=== PATIENT | male | born 1995 | race Caucasian/White ===

== ENCOUNTER → 2024-12-07 | Outpatient (CLI) | payer OTHER, SELFPAY ==
[2024-12-07 11:42] LABS: Hematocrit 43.4 % (40-54); Hemoglobin 15.0 g/dL (13.0-16.5); Immature Granulocytes Count 0.030 X10^3/uL (0.0-0.0); Mean Corp Hgb Conc 34.6 g/dL (32-36); Mean Corpuscular Volume 91.4 fL (80-94); Mean Platelet Vol. 10.7 fl (6.2-12.0); NRBC Flagged by Analyzer 0 % (0-5); Platelet Count 228 K/mm3 (150-450); RBC Distribution Width CV 12.2 % (11.6-14.6); RBC Distribution Width SD 40.9 fl (35.1-43.9); Red Blood Count 4.75 M/mm3 (4.6-6.2); White Blood Count 7.6 K/mm3 (4.4-11.0)
[2024-12-07 11:43] LABS: Color, Urine Yellow (Yellow); Glucose, Dipstick Normal (Normal); Ketone-Dipstick Negative (Negative); Leukocyte Esterase-Dipstick Negative /ul (Negative); Nitrite-Dipstick Negative (Negative); Occult Blood-Urine Negative /ul (Negative); Protein-Dipstick 15 mg/dl (Negative); Specific Gravity, Urine 1.020 (1.002-1.030); Urine Bilirubin Dipstick Negative (Negative)
[2024-12-07 12:32] LABS: FOLATES,SERUM (FOLIC ACID) 16.10 ng/mL (4.60-34.80)
[2024-12-07 12:38] LABS: AST(SGOT) 36 U/L (<=37); Alanine Aminotransfer ALT/SGPT 81 U/L (<=46); Albumin, Serum 4.3 g/dL (3.5-5.0); Alkaline Phosphatase 68 U/L (40-129); Anion Gap 13 (5-15); BUN 10 mg/dL (4-19); BUN/Creat Ratio 11.0 RATIO (10-20); Calcium,Total 9.3 mg/dL (7.6-11.0); Carbon Dioxide 23.1 mmol/L (21.0-32.0); Chloride 104 mmol/L (98-108); Cholesterol 196 mg/dL (<=200); Globulin 2.5 g/dL (2.2-4.2); Glucose 155 mg/dL (70-99); Low Density Lipoprotein Calc. 119 mg/dL; Potassium 4.1 mmol/L (3.3-5.1); T3 Total - Triiodothyronine 1.40 ng/mL (0.80-2.00); T4 Total, Thyroxin 7.3 ug/dL (4.5-12.1); Triglycerides 193 mg/dL; Very Low Density Lipoprotein 39 mg/dL (5-40); Vitamin B12 604 pg/mL (180-914); Vitamin D,25 Hydroxy 14.0 ng/mL (30-100); cholesterol:hdl ratio screen 5.09
[2024-12-07 13:09] LABS: Iron 136 ug/dL (65-175)
== END | disposition home or self-care (01) ==
LOC: LAB 10:52
PROVIDERS: PCP Nurse Practitioner Family
DX: F32.1 Major depressive disorder, single episode, moderate (principal)
CPT/HCPCS: 36415; 80053; 80061; 81002; 82306; 82607; 82746; 83036; 83540; 84403; 84436; 84439; 84443; 84480; 85025; 87086

== ENCOUNTER → 2024-12-10 | Outpatient (CLI) | payer OTHER, SELFPAY ==
--- NOTE | 2024-12-10 07:31 | EKG12_ITS ---
Test Reason : HIGH RISK MED Blood Pressure : */* mmHG Vent. Rate : 89 BPM Atrial Rate : 89 BPM P-R Int : 144 ms QRS Dur : 90 ms QT Int : 362 ms P-R-T Axes : -13 33 23 degrees QTcB Int : 440 ms Normal sinus rhythm Normal ECG Confirmed by TANIA MARQUEZ, IVANIA ([id number]), editorial cartoonist [employer] ([id number]) on 12/10/2024 1:18:06 PM Referred By: MIKE CAPELLAN Confirmed By: IVANIA MARIN MD
--- NOTE | 2024-12-10 07:31 | EKG12_ITS ---
Test Reason : HIGH RISK MED Blood Pressure : */* mmHG Vent. Rate : 89 BPM Atrial Rate : 89 BPM P-R Int : 144 ms QRS Dur : 90 ms QT Int : 362 ms P-R-T Axes : -13 33 23 degrees QTcB Int : 440 ms Normal sinus rhythm Normal ECG Confirmed by TANIA MARQUEZ, IVANIA ([id number]), publishing editor [employer] ([id number]) on 12/10/2024 1:18:06 PM Referred By: MIKE CAPELLAN Confirmed By: IVANIA MARIN MD
--- OUTSIDE RECORDS SUMMARY | 2024-12-10 07:32 | XMS RPT_ITS | CCD ---
Author Organization [facility] Care Team Providers Care Professor Of Management Name Role Phone Unavailable Primary Care Provider Harvey PAYNE BROOM MAN - PAPER BAG MACHINE OPERATOR, NOEL Fontenot Primary Care Phys ician KERRY CONTRERAS - NOEL HAMMER Attending U navailjt PAYNE APRN - PAPER BAG MACHINE OPERATOR, NOEL Fontenot Primary Care U navailable Pittak, Majano Referring Unavailable Pittak, Majano Attending Unavailable Kerry CHRONOGRAPH OPERATOR, Noel Osorio Primary Care Unav ailable Kerry CHRONOGRAPH OPERATOR, Noel Osorio Primary Care Unav ailable Pittak, Majano Referring Unavailable Pittak, Majano Attending Unavailable Allergies Allergy Classification Reported Allergen(s) Allergy Type Date of Onset Reaction(s) Facility (1 source) environmental [Other] Propensity to adverse reactions 0 [facility] Work Phone: (1 source) OTHER; Translations: [OTHER] Propensity to adverse reactions (disorder) 0 [facility] Repository Medications Current Medications Medication Drug Class(es) Dates Sig (Normalized) Sig (Original) amoxicillin 875 mg / clavulanate 125 mg oral tablet (1 source) Penicillin-class Antibacterial Start: 05-29-2023 End: 06-05-2023 take 1 tablet by mouth twice daily amoxicillin-clav ulanate potassium (AUGMENTIN) 875-125 mg per tablet Indications: Acute otitis media, left Take 1 tablet by mouth two times a day for 7 days. 14 tablet 0 05/29/2023 06/05/2023 Active Comment on above: Take 1 tablet by yadira th two times a day for 7 days. Completed/Discontinued Medications Medication Drug Class(es) Dates Sig (Normalized) Sig (Original) adapalene 0.001 mg/mg / benzoyl peroxide 0.025 mg/mg topical gel (2 sources) Retinoid Start: 05-05-2015 Adapalene-Benzoyl Peroxide (EPIDUO) 0.1-2.5 % gel Indications: Acne vulgaris Apply 1 application to affected area once daily. 1 Pump 2 05/05/2015 Active Comment on above: Apply 1 application to affected area once daily. fluticasone propionate 0.05 mg/actuat metered dose nasal spray (2 sources) Corticosteroid Start: 04-11-2022 take 2 spray(s) by mouth once daily fluticasone (FLONASE) 50 mcg/actuation nasal spray Use 2 Sprays in each nostril once daily. Rinse mouth after use. 1 Each 0 04/11/2022 Active Comment on above: Use 2 Sprays in each nostril once daily. Rinse mouth after use. meclizine hydrochloride 12.5 mg oral tablet (2 sources) Antiemetic Start: 04-11-2022 take 12.5-25 mg by mouth every six hours as needed meclizine (ANTIVERT) 12.5 mg tab Take 1-2 tablets by mouth every 6 hours as needed (dizziness). 12 tablet 0 04/11/2022 Active Comment on above: Take 1-2 tablets by mouth every 6 hours as needed (dizziness). Problems Problem Classification Problem Date Documented Da te Episodic/Chronic Conditions associated with dizziness or vertigo (1 source) Vertigo; Translations: [Dizziness and giddiness] Episodic Mood disorders (1 source) Major depressive disorder, single episode, moderate; Translations: [Major depressive disorder, single episode, moderate] Onset: 12-07-2024 Chronic Other hereditary and degenerative nervous system conditions (2 sources) Essential tremor; Translations: [Essential tremor] Onset: 03-17-2010 03-17-2010 Chronic Otitis media and related conditions (2 sources) Dysfunction of bilateral eustachian tubes; Translations: [Other specified disorders of Eustachian tube, bilateral] Episodic Residual codes; unclassified (1 source) Increased body mass index 12-19-2023 Episodic Unclassified (1 source) Non-smoker 12-19-2023 Unclassified (3 sources) Patient encounter status 12-19-2023 Results Test Name Value Interpretation Reference Range Facility CBC W/Diff, Automatedon 08-0 Absolute Lymph 2.51 X10 3/uL Normal 0.83-4.51 [facility] Comment on above: Performed By: #### L 400, L501.9985, L509.3001, L500.4100, L501.9520, L503.0106, L500.4050, L100.0100, L501.9310, L506.0200, L501.9187, L506.0400, L503.6150, L506.1001 #### [facility] [address] [place], [address] Absolute Neut 4.4 X10 3/uL Normal 2.0-7.7 [facility] Comment on above: Performed By: #### L 400, L501.9985, L509.3001, L500.4100, L501.9520, L503.0106, L500.4050, L100.0100, L501.9310, L506.0200, L501.9187, L506.0400, L503.6150, L506.1001 #### [facility] [address] [place], [address] Basophils/100 WBC (Bld) 0.5 % Normal 0-1 [facility] Comment on above: Performed By: #### L , L501.9985, L509.3001, L500.4100, L501.9520, L503.0106, L500.4050, L100.0100, L501.9310, L506.0200, L501.9187, L506.0400, L503.6150, L506.1001 #### [facility] [address] [place], [address] Eosinophils/100 WBC (Bld) 1.8 % Normal 0-5 [facility] Comment on above: Performed By: #### L 400, L501.9985, L509.3001, L500.4100, L501.9520, L503.0106, L500.4050, L100.0100, L501.9310, L506.0200, L501.9187, L506.0400, L503.6150, L506.1001 #### [facility] [address] [place], [place], [id number] (421) Erythrocyte distribution width (RBC) [Ratio] 12.2 % Normal 11.6-14.6 [facility] Comment on above: Performed By: #### L 400, L501.9985, L509.3001, L500.4100, L501.9520, L503.0106, L500.4050, L100.0100, L501.9310, L506.0200, L501.9187, L506.0400, L503.6150, L506.1001 #### [facility] [address] [place], [place], [phone] (071) Hematocrit (Bld) [Volume fraction] 43.4 % Normal 40-54 [facility] Comment on above: Performed By: #### L 400, L501.9985, L509.3001, L500.4100, L501.9520, L503.0106, L500.4050, L100.0100, L501.9310, L506.0200, L501.9187, L506.0400, L503.6150, L506.1001 #### [facility] [address] [place], [address] Hemoglobin (Bld) [Mass/Vol] 15.0 g/dL Normal 13.0-16.5 [facility] Comment on above: Performed By: #### L 400, L501.9985, L509.3001, L500.4100, L501.9520, L503.0106, L500.4050, L100.0100, L501.9310, L506.0200, L501.9187, L506.0400, L503.6150, L506.1001 #### [facility] [address] [place], [address] IG% 0.400 Normal 0.0-0.9 [facility] Comment on above: Result Comment: IG% - Immature Granulocytes (promyelocytes, myelocytes and metamyelocytes) > 1% indicates that a LEFT SHIFT is Present. Performed By: #### L 400.2010, L501.9985, L509.3001, L500.4100, L501.9520, L503.0106, L500.4050, L100.0100, L501.9310, L506.0200, L501.9187, L506.0400, L503.6150, L506.1001 #### [facility] [address] [place], [address] (400 Lymphocytes/100 WBC (Bld) 32.9 % Normal 19-41 [facility] Comment on above: Performed By: #### L 400, L501.9985, L509.3001, L500.4100, L501.9520, L503.0106, L500.4050, L100.0100, L501.9310, L506.0200, L501.9187, L506.0400, L503.6150, L506.1001 #### [facility] [address] [place], [address] (491) MCH (RBC) [Entitic mass] 31.6 pg Normal 27.0-32.0 [facility] Comment on above: Performed By: #### L 400, L501.9985, L509.3001, L500.4100, L501.9520, L503.0106, L500.4050, L100.0100, L501.9310, L506.0200, L501.9187, L506.0400, L503.6150, L506.1001 #### [facility] [address] [place], [address] MCHC (RBC) [Mass/Vol] 34.6 g/dL Normal 32-36 [facility] Comment on above: Performed By: #### L 400, L501.9985, L509.3001, L500.4100, L501.9520, L503.0106, L500.4050, L100.0100, L501.9310, L506.0200, L501.9187, L506.0400, L503.6150, L506.1001 #### [facility] [address] [place], [address] MCV (RBC) [Entitic vol] 91.4 fL Normal 80-94 [facility] Comment on above: Performed By: #### L 400, L501.9985, L509.3001, L500.4100, L501.9520, L503.0106, L500.4050, L100.0100, L501.9310, L506.0200, L501.9187, L506.0400, L503.6150, L506.1001 #### [facility] [address] [place], [address] Monocytes/100 WBC (Bld) 6.9 % Normal 0-10 [facility] Comment on above: Performed By: #### L 400, L501.9985, L509.3001, L500.4100, L501.9520, L503.0106, L500.4050, L100.0100, L501.9310, L506.0200, L501.9187, L506.0400, L503.6150, L506.1001 #### [facility] [address] [place], [address] Neutrophils/100 WBC (Bld) 57.5 % Normal 47-70 [facility] Comment on above: Performed By: #### L 400, L501.9985, L509.3001, L500.4100, L501.9520, L503.0106, L500.4050, L100.0100, L501.9310, L506.0200, L501.9187, L506.0400, L503.6150, L506.1001 #### [facility] [address] [place], [address] Nucleated RBC (Bld) [#/Vol] 0 10*3/uL Normal 0-5 [facility] Comment on above: Performed By: #### L 400.2010, L501.9985, L509.3001, L500.4100, L501.9520, L503.0106, L500.4050, L100.0100, L501.9310, L506.0200, L501.9187, L506.0400, L503.6150, L506.1001 #### [facility] [address] [place], [address] Platelet mean volume (Bld) [Entitic vol] 10.7 fL Normal 6.2-12.0 [facility] Comment on above: Performed By: #### L 400.2010, L501.9985, L509.3001, L500.4100, L501.9520, L503.0106, L500.4050, L100.0100, L501.9310, L506.0200, L501.9187, L506.0400, L503.6150, L506.1001 #### [facility] [address] [place], [address] Platelets (Bld) [#/Vol] 228 10*3/uL Normal 150-450 [facility] Comment on above: Performed By: #### L 400, L501.9985, L509.3001, L500.4100, L501.9520, L503.0106, L500.4050, L100.0100, L501.9310, L506.0200, L501.9187, L506.0400, L503.6150, L506.1001 #### [facility] [address] [place], [address] RBC (Bld) [#/Vol] 4.75 10*6/uL Normal 4.6-6.2 [facility] Comment on above: Performed By: #### L , L501.9985, L509.3001, L500.4100, L501.9520, L503.0106, L500.4050, L100.0100, L501.9310, L506.0200, L501.9187, L506.0400, L503.6150, L506.1001 #### [facility] [address] [place], [address] RDW SD 40.9 fl Normal 35.1-43.9 [facility] Comment on above: Performed By: #### L , L501.9985, L509.3001, L500.4100, L501.9520, L503.0106, L500.4050, L100.0100, L501.9310, L506.0200, L501.9187, L506.0400, L503.6150, L506.1001 #### [facility] [address] [place], [address] WBC (Bld) [#/Vol] 7.6 10*3/uL Normal 4.4-11.0 [facility] Comment on above: Performed By: #### L , L501.9985, L509.3001, L500.4100, L501.9520, L503.0106, L500.4050, L100.0100, L501.9310, L506.0200, L501.9187, L506.0400, L503.6150, L506.1001 #### [facility] [address] [place], [address] Comprehensive Metabolic Prof neon 12-07-2024 Albumin [Mass/Vol] 4.3 g/dL Normal 3.5-5.0 [facility] Comment on above: Performed By: #### L , L501.9985, L509.3001, L500.4100, L501.9520, L503.0106, L500.4050, L100.0100, L501.9310, L506.0200, L501.9187, L506.0400, L503.6150, L506.1001 #### [facility] [address] [place], [place], [id number] (368) Albumin/Globulin [Mass ratio] 1.7 {ratio} Normal 0.9-2.4 [facility] Comment on above: Performed By: #### L 400, L501.9985, L509.3001, L500.4100, L501.9520, L503.0106, L500.4050, L100.0100, L501.9310, L506.0200, L501.9187, L506.0400, L503.6150, L506.1001 #### [facility] [address] [place], [place], [id number] ALK PHOS 68 U/L Normal 40-129 [facility] Comment on above: Performed By: #### L , L501.9985, L509.3001, L500.4100, L501.9520, L503.0106, L500.4050, L100.0100, L501.9310, L506.0200, L501.9187, L506.0400, L503.6150, L506.1001 #### [facility] [address] [place], [place], [id number] (954) ALT [Catalytic activity/Vol] 81 U/L High <=46 [facility] Comment on above: Performed By: #### L 400, L501.9985, L509.3001, L500.4100, L501.9520, L503.0106, L500.4050, L100.0100, L501.9310, L506.0200, L501.9187, L506.0400, L503.6150, L506.1001 #### [facility] [address] [place], [place], [id number] AST [Catalytic activity/Vol] 36 U/L Normal <=37 [facility] Comment on above: Performed By: #### L 400, L501.9985, L509.3001, L500.4100, L501.9520, L503.0106, L500.4050, L100.0100, L501.9310, L506.0200, L501.9187, L506.0400, L503.6150, L506.1001 #### [facility] [address] [place], [place], [id number] Bilirubin [Mass/Vol] 0.43 mg/dL Normal 0.00-1.30 [facility] Comment on above: Performed By: #### L , L501.9985, L509.3001, L500.4100, L501.9520, L503.0106, L500.4050, L100.0100, L501.9310, L506.0200, L501.9187, L506.0400, L503.6150, L506.1001 #### [facility] [address] [place], [place], [id number] BUN/CRE 11.0 RATIO Normal 10-20 [facility] Comment on above: Performed By: #### L 400, L501.9985, L509.3001, L500.4100, L501.9520, L503.0106, L500.4050, L100.0100, L501.9310, L506.0200, L501.9187, L506.0400, L503.6150, L506.1001 #### [facility] [address] [place], [place], [id number] Calcium [Mass/Vol] 9.3 mg/dL Normal 7.6-11.0 [facility] Comment on above: Performed By: #### L 400.2010, L501.9985, L509.3001, L500.4100, L501.9520, L503.0106, L500.4050, L100.0100, L501.9310, L506.0200, L501.9187, L506.0400, L503.6150, L506.1001 #### [facility] [address] [place], [address] Chloride [Moles/Vol] 104 mmol/L Normal 98-108 [facility] Comment on above: Performed By: #### L 400, L501.9985, L509.3001, L500.4100, L501.9520, L503.0106, L500.4050, L100.0100, L501.9310, L506.0200, L501.9187, L506.0400, L503.6150, L506.1001 #### [facility] [address] [place], [place], [id number] (831) CO2 [Moles/Vol] 23.1 mmol/L Normal 21.0-32.0 [facility] Comment on above: Performed By: #### L , L501.9985, L509.3001, L500.4100, L501.9520, L503.0106, L500.4050, L100.0100, L501.9310, L506.0200, L501.9187, L506.0400, L503.6150, L506.1001 #### [facility] [address] [place], [place], [id number] (745) Creatinine [Mass/Vol] 0.95 mg/dL Normal 0.70-1.20 [facility] Comment on above: Performed By: #### L 400, L501.9985, L509.3001, L500.4100, L501.9520, L503.0106, L500.4050, L100.0100, L501.9310, L506.0200, L501.9187, L506.0400, L503.6150, L506.1001 #### [facility] [address] [facility] [place], [place], [id number] GAP 13 Normal 5-15 [facility] Comment on above: Performed By: #### L 400, L501.9985, L509.3001, L500.4100, L501.9520, L503.0106, L500.4050, L100.0100, L501.9310, L506.0200, L501.9187, L506.0400, L503.6150, L506.1001 #### [facility] [address] [place], [address] GFR/1.73 sq M.predicted among non-blacks MDRD (S/P/Bld) [Vol rate/Area] 113 mL/min/{1.73_m2} Normal >60 [facility] Comment on above: Result Comment: mL/m in/1.73m2 CKD-EPI Creatinine Equation (2020) Performed By: #### L , L501.9985, L509.3001, L500.4100, L501.9520, L503.0106, L500.4050, L100.0100, L501.9310, L506.0200, L501.9187, L506.0400, L503.6150, L506.1001 #### [facility] [address] [place], [address] Globulin (S) [Mass/Vol] 2.5 g/dL Normal 2.2-4.2 [facility] Comment on above: Performed By: #### L 400, L501.9985, L509.3001, L500.4100, L501.9520, L503.0106, L500.4050, L100.0100, L501.9310, L506.0200, L501.9187, L506.0400, L503.6150, L506.1001 #### [facility] [address] [place], [address] Glucose [Mass/Vol] 155 mg/dL High 70-99 [facility] Comment on above: Performed By: #### L 400, L501.9985, L509.3001, L500.4100, L501.9520, L503.0106, L500.4050, L100.0100, L501.9310, L506.0200, L501.9187, L506.0400, L503.6150, L506.1001 #### [facility] [address] [place], [address] Potassium [Moles/Vol] 4.1 mmol/L Normal 3.3-5.1 [facility] Comment on above: Performed By: #### L 400, L501.9985, L509.3001, L500.4100, L501.9520, L503.0106, L500.4050, L100.0100, L501.9310, L506.0200, L501.9187, L506.0400, L503.6150, L506.1001 #### [facility] [address] [place], [address] Sodium [Moles/Vol] 140 mmol/L Normal 133-145 [facility] Comment on above: Performed By: #### L 400, L501.9985, L509.3001, L500.4100, L501.9520, L503.0106, L500.4050, L100.0100, L501.9310, L506.0200, L501.9187, L506.0400, L503.6150, L506.1001 #### [facility] [address] [place], [address] T PROT 6.9 g/dL Normal 5.9-8.4 [facility] Comment on above: Performed By: #### L 400.2010, L501.9985, L509.3001, L500.4100, L501.9520, L503.0106, L500.4050, L100.0100, L501.9310, L506.0200, L501.9187, L506.0400, L503.6150, L506.1001 #### [facility] [address] [place], [address] Urea nitrogen [Mass/Vol] 10 mg/dL Normal 4-19 [facility] Comment on above: Performed By: #### L 400.2010, L501.9985, L509.3001, L500.4100, L501.9520, L503.0106, L500.4050, L100.0100, L501.9310, L506.0200, L501.9187, L506.0400, L503.6150, L506.1001 #### [facility] [address] [place], [address] Folates,Serum (Folic Acid)on 12-07-2024 FOLATES,SERUM 16.10 ng/mL Normal 4.60-34.80 [facility] Comment on above: Order Comment: N Performed By: #### L 400.2010, L501.9985, L509.3001, L500.4100, L501.9520, L503.0106, L500.4050, L100.0100, L501.9310, L506.0200, L501.9187, L506.0400, L503.6150, L506.1001 #### [facility] [address] [place], [address] Hemoglobin A1con 12-07-2024 HbA1c (Bld) [Mass fraction] 6.6 % High <=5.6 [facility] Comment on above: Result Comment: Norm al < 5.7 % Prediabetic 5.7 - 6.4 % Diabetic >or= 6.5 % Please note range changes. Performed By: #### L 400.2010, L501.9985, L509.3001, L500.4100, L501.9520, L503.0106, L500.4050, L100.0100, L501.9310, L506.0200, L501.9187, L506.0400, L503.6150, L506.1001 #### [facility] [address] [place], [address] Ironon 12-07-2024 Iron [Mass/Vol] 136 ug/dL Normal 65-175 [facility] Comment on above: Performed By: #### L 400.2010, L501.9985, L509.3001, L500.4100, L501.9520, L503.0106, L500.4050, L100.0100, L501.9310, L506.0200, L501.9187, L506.0400, L503.6150, L506.1001 #### [facility] [address] [place], [address] L501.9187on 12-07-2024 T3 Total 1.40 ng/mL Normal 0.80-2.00 [facility] Comment on above: Performed By: #### L 400.2010, L501.9985, L509.3001, L500.4100, L501.9520, L503.0106, L500.4050, L100.0100, L501.9310, L506.0200, L501.9187, L506.0400, L503.6150, L506.1001 #### [facility] [address] [place], [address] L509.3001on 12-07-2024 Testosterone [Mass/Vol] 307.00 ng/dL Normal 300-1080 [facility] Comment on above: Performed By: #### L 400, L501.9985, L509.3001, L500.4100, L501.9520, L503.0106, L500.4050, L100.0100, L501.9310, L506.0200, L501.9187, L506.0400, L503.6150, L506.1001 #### [facility] [address] [place], [place], [id number] Lipid Profileon 12-07-2024 CHOL:HDL 5.09 Normal [facility] Comment on above: Performed By: #### L 400.2010, L501.9985, L509.3001, L500.4100, L501.9520, L503.0106, L500.4050, L100.0100, L501.9310, L506.0200, L501.9187, L506.0400, L503.6150, L506.1001 #### [facility] [address] [place], [address] Cholesterol [Mass/Vol] 196 mg/dL Normal <=200 [facility] Comment on above: Result Comment: Chol esterol level, Desirable <200 mg/dL Borderline high cholesterol 200-239 mg/dL High cholesterol >=240 mg/dL Recommendations of the NCEP Adult Treatment Panel for the following risk-cutoff thresholds for the [place] population. Performed By: #### L 400, L501.9985, L509.3001, L500.4100, L501.9520, L503.0106, L500.4050, L100.0100, L501.9310, L506.0200, L501.9187, L506.0400, L503.6150, L506.1001 #### [facility] [address] [place], [place], [id number] Cholesterol in HDL [Mass/Vol] 39 mg/dL Low [facility] Comment on above: Result Comment: Cyndi onal Cholesterol Education Program (NCEP) guidelines: <40 mg/dL: Low HDL-cholesterol (major risk factor for CHD) >= 60 mg/dL: High HDL-cholesterol (negative risk factor for CHD) HDL-cholesterol is affected by a number of factors, e.g. smoking, exercise, hormones, sex and age. Performed By: #### L 400, L501.9985, L509.3001, L500.4100, L501.9520, L503.0106, L500.4050, L100.0100, L501.9310, L506.0200, L501.9187, L506.0400, L503.6150, L506.1001 #### [facility] [address] [place], [address] Cholesterol in LDL [Mass/Vol] 119 mg/dL Normal [facility] Comment on above: Result Comment: Bord ejutvi=245-566 mg/dL Higher Lodg=428 mg/dL or greater Friedwald Equation for LDL-C Performed By: #### L 400, L501.9985, L509.3001, L500.4100, L501.9520, L503.0106, L500.4050, L100.0100, L501.9310, L506.0200, L501.9187, L506.0400, L503.6150, L506.1001 #### [facility] [address] [place], [address] Cholesterol in VLDL [Mass/Vol] 39 mg/dL Normal 5-40 [facility] Comment on above: Performed By: #### L , L501.9985, L509.3001, L500.4100, L501.9520, L503.0106, L500.4050, L100.0100, L501.9310, L506.0200, L501.9187, L506.0400, L503.6150, L506.1001 #### [facility] [address] [place], [address] Triglyceride [Mass/Vol] 193 mg/dL Normal [facility] Comment on above: Result Comment: The drugs N-Acetylcysteine and Metamizole may falsely depress this assay. Normal range: <150 mg/dL Borderline High: 150-199 mg/dL High: 200-499 mg/dL Very High: >500 mg/dL Performed By: #### L 400.2010, L501.9985, L509.3001, L500.4100, L501.9520, L503.0106, L500.4050, L100.0100, L501.9310, L506.0200, L501.9187, L506.0400, L503.6150, L506.1001 #### [facility] [address] [place], [place], [phone] ([phone]) T4 Free Directon 12-07-2024 T4 FREE DIRECT 1.30 ng/dL Normal 0.76-1.46 [facility] Comment on above: Performed By: #### L 400, L501.9985, L509.3001, L500.4100, L501.9520, L503.0106, L500.4050, L100.0100, L501.9310, L506.0200, L501.9187, L506.0400, L503.6150, L506.1001 #### [facility] [address] [facility]. [place], [place], [phone] T4 Total, Thyroxinon 025 T4 [Mass/Vol] 7.3 ug/dL Normal 4.5-12.1 [facility] Comment on above: Performed By: #### L 400, L501.9985, L509.3001, L500.4100, L501.9520, L503.0106, L500.4050, L100.0100, L501.9310, L506.0200, L501.9187, L506.0400, L503.6150, L506.1001 #### [facility] [address] [facility]. [place], [place], [phone]) Thyroid Stim Hormone (TSH)on 12-07-2024 TSH 3.800 uIU/mL Normal 0.300-4.200 [facility] Comment on above: Performed By: #### L 400.2010, L501.9985, L509.3001, L500.4100, L501.9520, L503.0106, L500.4050, L100.0100, L501.9310, L506.0200, L501.9187, L506.0400, L503.6150, L506.1001 #### [facility] [address] [place], [place], [phone] Urinalysis, Routine (Dipstic k)on 12-07-2024 BILIRUBIN URINE Negative Normal Negative [facility] Comment on above: Order Comment: Urine , Random Performed By: #### L 400, L501.9985, L509.3001, L500.4100, L501.9520, L503.0106, L500.4050, L100.0100, L501.9310, L506.0200, L501.9187, L506.0400, L503.6150, L506.1001 #### [facility] [address] [place], [place], [phone] Clarity (U) Clear Normal Clear [facility] Comment on above: Order Comment: Urine , Random Performed By: #### L , L501.9985, L509.3001, L500.4100, L501.9520, L503.0106, L500.4050, L100.0100, L501.9310, L506.0200, L501.9187, L506.0400, L503.6150, L506.1001 #### [facility] [address] [place], [place], [phone] Color (U) Yellow Normal Yellow [facility] Comment on above: Order Comment: Urine , Random Performed By: #### L 400, L501.9985, L509.3001, L500.4100, L501.9520, L503.0106, L500.4050, L100.0100, L501.9310, L506.0200, L501.9187, L506.0400, L503.6150, L506.1001 #### [facility] [address] [place], [place], [phone]) GLUCOSE, UR Normal Normal Normal [facility] Comment on above: Order Comment: Urine , Random Performed By: #### L 400.2010, L501.9985, L509.3001, L500.4100, L501.9520, L503.0106, L500.4050, L100.0100, L501.9310, L506.0200, L501.9187, L506.0400, L503.6150, L506.1001 #### [facility] [address] [place], [place], [id number] ([phone] KETONE UR Negative Normal Negative [facility] Comment on above: Order Comment: Urine , Random Performed By: #### L 400, L501.9985, L509.3001, L500.4100, L501.9520, L503.0106, L500.4050, L100.0100, L501.9310, L506.0200, L501.9187, L506.0400, L503.6150, L506.1001 #### [facility] [address] [place], [place], [id number] ([phone]) LEUK ESTERASE Negative Normal Negative [facility] Comment on above: Order Comment: Urine , Random Performed By: #### L 400, L501.9985, L509.3001, L500.4100, L501.9520, L503.0106, L500.4050, L100.0100, L501.9310, L506.0200, L501.9187, L506.0400, L503.6150, L506.1001 #### [facility] [address] [place], [place], [id number] ([phone]) Nitrite Ql (U) Negative Normal Negative [facility] Comment on above: Order Comment: Urine , Random Performed By: #### L 400, L501.9985, L509.3001, L500.4100, L501.9520, L503.0106, L500.4050, L100.0100, L501.9310, L506.0200, L501.9187, L506.0400, L503.6150, L506.1001 #### [facility] [address] [place], [place], [id number] OCCULT BLOOD-UR Negative Normal Negative [facility] Comment on above: Order Comment: Urine , Random Performed By: #### L 400, L501.9985, L509.3001, L500.4100, L501.9520, L503.0106, L500.4050, L100.0100, L501.9310, L506.0200, L501.9187, L506.0400, L503.6150, L506.1001 #### [facility] [address] [place], [place], [id number] pH UR 6.0 Normal 5.0 - 8.0 [facility] Comment on above: Order Comment: Urine , Random Performed By: #### L 400, L501.9985, L509.3001, L500.4100, L501.9520, L503.0106, L500.4050, L100.0100, L501.9310, L506.0200, L501.9187, L506.0400, L503.6150, L506.1001 #### [facility] [address] [place], [place], [id number] (612) PROT DIPSTX 15 mg/dl Abnormal Negative [facility] Comment on above: Order Comment: Urine , Random Performed By: #### L 400, L501.9985, L509.3001, L500.4100, L501.9520, L503.0106, L500.4050, L100.0100, L501.9310, L506.0200, L501.9187, L506.0400, L503.6150, L506.1001 #### [facility] [address] [place], [place], [id number] (045) SP.GR. DIPSTX 1.020 Normal 1.002-1.030 [facility] Comment on above: Order Comment: Urine , Random Performed By: #### L 400.2010, L501.9985, L509.3001, L500.4100, L501.9520, L503.0106, L500.4050, L100.0100, L501.9310, L506.0200, L501.9187, L506.0400, L503.6150, L506.1001 #### [facility] [address] [place], [place], [id number] (641) UROBILI Normal Normal Normal [facility] Comment on above: Order Comment: Urine , Random Performed By: #### L 400, L501.9985, L509.3001, L500.4100, L501.9520, L503.0106, L500.4050, L100.0100, L501.9310, L506.0200, L501.9187, L506.0400, L503.6150, L506.1001 #### [facility] [address] [place], [place], [id number] (452) Vitamin B12on 12-07-2024 Cobalamin (Vitamin B12) [Mass/Vol] 604 pg/mL Normal 180-914 [facility] Comment on above: Performed By: #### L 400, L501.9985, L509.3001, L500.4100, L501.9520, L503.0106, L500.4050, L100.0100, L501.9310, L506.0200, L501.9187, L506.0400, L503.6150, L506.1001 #### [facility] [address] [place], [address] Vitamin D,25 Hydroxyon 12-07 Vitamin D 25-OH 14.0 ng/mL Low 30-100 [facility] Comment on above: Result Comment: Leandra min D Status Deficiency: <20 ng/mL (50nmol/L) Insufficiency: 20-30 ng/mL (50-75 nmol/L) Sufficiency: 30-100 ng/mL (75-250 nmol/L) Toxicity: >100 ng/mL (>250 nmol/L) Performed By: #### L 400.2011, L501.9985, L509.3001, L500.4100, L501.9520, L503.0106, L500.4050, L100.0100, L501.9310, L506.0200, L501.9187, L506.0400, L503.6150, L506.1001 #### [facility] [address] [place], [place], [id number] .GFRon 12-22-2023 GFR 93 ml/min/1.73sqm Normal [facility] ([place]) Comment on above: Result Comment: GFR Population mean for , Non- Americans Ages 20-29 = 116 mL/min/1.73 sq.m. Ages 30-39 = 107 mL/min/1.73 sq.m. Ages 40-49 = 99 mL/min/1.73 sq.m. Ages 50-59 = 93 mL/min/1.73 sq.m. Ages 60-69 = 85 mL/min/1.73 sq.m. Ages 70+ = 75 mL/min/1.73 sq.m. Chronic Kidney Disease: Less than 60 mL/min/1.73 square meters End Stage Renal Disease: Less than 15 mL/min/1.73 square meters Performed By: #### C MP, GFR, LIPID #### [place] [address] [address] GFR Non- 77 ml/min/1.73sqm Normal [facility] ([place]) Comment on above: Result Comment: GFR Population mean for , Non- Americans Ages 20-29 = 116 mL/min/1.73 sq.m. Ages 30-39 = 107 mL/min/1.73 sq.m. Ages 40-49 = 99 mL/min/1.73 sq.m. Ages 50-59 = 93 mL/min/1.73 sq.m. Ages 60-69 = 85 mL/min/1.73 sq.m. Ages 70+ = 75 mL/min/1.73 sq.m. Chronic Kidney Disease: Less than 60 mL/min/1.73 square meters End Stage Renal Disease: Less than 15 mL/min/1.73 square meters Performed By: #### C MP, GFR, LIPID #### [address] [address] CMPon 12-22-2023 Albumin Level 4.0 G/dL Normal 3.5-5.0 [facility] ([place]) Comment on above: Performed By: #### C MP, GFR, LIPID #### [address] [address] Albumin/Globulin [Mass ratio] 1.3 {ratio} Normal 1.1-2.5 [facility] ([place]) Comment on above: Performed By: #### C MP, GFR, LIPID #### [address] [address] ALP [Catalytic activity/Vol] 88 U/L Normal 40-135 [facility] ([place]) Comment on above: Performed By: #### C MP, GFR, LIPID #### [address] [address] ALT [Catalytic activity/Vol] 72 U/L High 16-63 [facility] ([place]) Comment on above: Performed By: #### C MP, GFR, LIPID #### [address] [address] AST [Catalytic activity/Vol] 23 U/L Normal 10-40 [facility] ([place]) Comment on above: Performed By: #### C MP, GFR, LIPID #### [address] [address] Bili Total 0.4 mg/dL Normal 0.2-1.0 [facility] ([place]) Comment on above: Result Comment: Use of this assay is not recommended for patients undergoing treatment with eltrombopag due to the potential for falsely elevated results. Performed By: #### C MP, GFR, LIPID #### [address] [address] BUN/Creatinine Ratio 10 ratio Normal 7-27 [facility] ([place]) Comment on above: Performed By: #### C MP, GFR, LIPID #### [address] [address] Calcium [Mass/Vol] 9.1 mg/dL Normal 8.4-10.2 [facility] ([place]) Comment on above: Performed By: #### C MP, GFR, LIPID #### [address] [address] Chloride [Moles/Vol] 105 mmol/L Normal 98-107 [facility] ([place]) Comment on above: Performed By: #### C MP, GFR, LIPID #### [address] [address] CO2 [Moles/Vol] 27 mmol/L Normal 22-29 [facility] ([place]) Comment on above: Performed By: #### C MP, GFR, LIPID #### [address] [address] Creatinine [Mass/Vol] 1.15 mg/dL Normal 0.70-1.30 [facility] ([place]) Comment on above: Performed By: #### C MP, GFR, LIPID #### [address] [address] Electrolyte Balance 9.0 mEq/L Normal 4.0-15.0 [facility] ([place]) Comment on above: Performed By: #### C MP, GFR, LIPID #### [address] [address] Globulin 3.1 G/dL Normal [facility] ([place]) Comment on above: Performed By: #### C MP, GFR, LIPID #### [address] [address] Glucose [Mass/Vol] 92 mg/dL Normal 70-105 [facility] ([place]) Comment on above: Performed By: #### C MP, GFR, LIPID #### [address] [place], [place] [address] Potassium [Moles/Vol] 4.5 mmol/L Normal 3.5-5.1 [facility] ([place]) Comment on above: Performed By: #### C MP, GFR, LIPID #### [address] [place], [place] [address] Sodium [Moles/Vol] 141 mmol/L Normal 136-145 [facility] ([place]) Comment on above: Performed By: #### C MP, GFR, LIPID #### [address] [address] Total Protein 7.1 G/dL Normal 6.4-8.2 [facility] ([place]) Comment on above: Performed By: #### C MP, GFR, LIPID #### [address] [address] Urea nitrogen [Mass/Vol] 11 mg/dL Normal 7-18 [facility] ([place]) Comment on above: Performed By: #### C MP, GFR, LIPID #### [address] [address] LABORATORYOrdered By: SYSTEM SYSTEM on 12-22-2023 Albumin BCP dye [Mass/Vol] 4.0 G/dL Normal 3.5 - 5.0 G/dL AO ADM SS Albumin/Globulin [Mass ratio] 1.3 {ratio} Normal 1.1 - 2.5 ratio AO ADM SS ALP [Catalytic activity/Vol] 88 U/L Normal 40 - 135 U/L AO ADM SS ALT With P-5'-P [Catalytic activity/Vol] 72 U/L High 16 - 63 U/L AO ADM SS AST With P-5'-P [Catalytic activity/Vol] 23 U/L Normal 10 - 40 U/L AO ADM SS Bilirubin [Mass/Vol] 0.4 mg/dL Normal 0.2 - 1 .0 mg/dL AO ADM SS Comment on above: Interpretive Data: U se of this assay is not recommended for patients undergoing treatment with eltrombopag due to the potential for falsely elevated results. Calcium [Mass/Vol] 9.1 mg/dL Normal 8.4 - 10. 2 mg/dL AO ADM SS Chloride [Moles/Vol] 105 mmol/L Normal 98 - 10 7 mmol/L AO ADM SS CO2 [Moles/Vol] 27 mmol/L Normal 22 - 29 mmol/L AO ADM SS Creatinine [Mass/Vol] 1.15 mg/dL Normal 0.70 - 1.30 mg/dL AO ADM SS Electrolyte Balance 9.0 mEq/L Normal 4.0 - 15 .0 mEq/L AO ADM SS GFR/1.73 sq M.predicted among blacks MDRD (S/P/Bld) [Vol rate/Area] 93 ml/min/1.73sqm Invalid Interpretation Code AO Chemistry S Comment on above: Interpretive Data: GFR Population mean for , Non- Americans Ages 20-29 = 116 mL/min/1.73 sq.m. Ages 30-39 = 107 mL/min/1.73 sq.m. Ages 40-49 = 99 mL/min/1.73 sq.m. Ages 50-59 = 93 mL/min/1.73 sq.m. Ages 60-69 = 85 mL/min/1.73 sq.m. Ages 70+ = 75 mL/min/1.73 sq.m. Chronic Kidney Disease: Less than 60 mL/min/1.73 square meters End Stage Renal Disease: Less than 15 mL/min/1.73 square meters GFR/1.73 sq M.predicted among non-blacks MDRD (S/P/Bld) [Vol rate/Area] 77 ml/min/1.73sqm Invalid Interpretation Code AO Chemistry S Comment on above: Interpretive Data: GFR Population mean for , Non- Americans Ages 20-29 = 116 mL/min/1.73 sq.m. Ages 30-39 = 107 mL/min/1.73 sq.m. Ages 40-49 = 99 mL/min/1.73 sq.m. Ages 50-59 = 93 mL/min/1.73 sq.m. Ages 60-69 = 85 mL/min/1.73 sq.m. Ages 70+ = 75 mL/min/1.73 sq.m. Chronic Kidney Disease: Less than 60 mL/min/1.73 square meters End Stage Renal Disease: Less than 15 mL/min/1.73 square meters Globulin 3.1 G/dL Invalid Interpretation Code AO ADM SS Glucose [Mass/Vol] 92 mg/dL Normal 70 - 105 mg/dL AO ADM SS Potassium [Moles/Vol] 4.5 mmol/L Normal 3.5 - 5.1 mmol/L AO ADM SS Protein [Mass/Vol] 7.1 G/dL Normal 6.4 - 8.2 G/dL AO ADM SS Sodium [Moles/Vol] 141 mmol/L Normal 136 - 145 mmol/L AO ADM SS Urea nitrogen [Mass/Vol] 11 mg/dL Normal 7 - 18 mg/dL AO ADM SS Urea nitrogen/Creatinine [Mass ratio] 10 ratio Normal 7 - 27 ratio AO ADM SS LABORATORYOrdered By: Jacquie Lindsey on 12-22-2023 Cholesterol [Mass/Vol] 162 mg/dL Normal 0 - 200 mg/dL AO ADM SS Comment on above: Interpretive Data: C holesterol Reference Interval: Less than 200 Desirable 200-239 Borderline high risk 240 and above High risk Cholesterol in HDL [Mass/Vol] 36 mg/dL Low 40 - 60 mg/dL AO ADM SS Cholesterol in LDL [Mass/Vol] 99 mg/dL Normal 0 - 130 mg/dL AO ADM SS Triglyceride [Mass/Vol] 137 mg/dL Normal 0 - 150 mg/dL AO ADM SS Comment on above: Interpretive Data: T riglyceride Reference Interval: Less than 150 Normal 150-199 Borderline high risk 200-499 High risk 500 or higher Very high risk LIPIDon 12-22-2023 Cholesterol [Mass/Vol] 162 mg/dL Normal 0-200 [facility] ([place]) Comment on above: Result Comment: Chol esterol Reference Interval: Less than 200 Desirable 200-239 Borderline high risk 240 and above High risk Performed By: #### C MP, GFR, LIPID #### [address] [address] Cholesterol in HDL [Mass/Vol] 36 mg/dL Low 40-60 [facility] ([place]) Comment on above: Performed By: #### C MP, GFR, LIPID #### [place] [address] [address] Cholesterol in LDL [Mass/Vol] 99 mg/dL Normal 0-130 [facility] ([place]) Comment on above: Performed By: #### C MP, GFR, LIPID #### [facility] [address] [place], [place] [address] Triglyceride [Mass/Vol] 137 mg/dL Normal 0-150 [facility] ([place]) Comment on above: Result Comment: Trig lyceride Reference Interval: Less than 150 Normal 150-199 Borderline high risk 200-499 High risk 500 or higher Very high risk Performed By: #### C MP, GFR, LIPID #### [place] [address] [place], [place] [address] CNOVon 05-29-2023 CNOV Office Visit ([facility]) -------- BAKARINOAH CORDOBA ([id number]) 1995 M Date Time Provider Department 05/29/23 9:00 AM RENETTA LEGGETT [facility] During your visit today, we recorded the following information about you: Temperature Pulse Respiration Blood pressure 97.5 degrees 91/minute 18/minute 151/90 Weight 127 kg Renetta Leggett APRN.[facility] 05/29/2023 9:20 AM Signed CC: Patient presents with: Ear Problem: L ear pressure, no constant pain x1 day, pain with chewing HPI: Noah Villegas is a 27 year old male who presents to the office with complaint of ear symptoms for the past day. Symptoms are staying the same. Associated symptoms includes ear pressure . Denies fever, nausea, vomiting , and diarrhea. Treatments tried include nothing so far. with no relief of symptoms. Sick contacts: unknown. History of asthma, frequent episodes of bronchitis, chronic bronchitis, bronchiectasis or COPD: No Smoker: No Seasonal/environme ntal allergies: No The ROS is otherwise negative. The patient's pmh, medications, allergies, and past visits are reviewed. PHYSICAL EXAM: BP 151/90 Pulse 91 Temp 36.4 ?C (97.5 ?F) Resp 18 Wt 127 kg (280 lb) SpO2 99% General appearance: alert, cooperative, pleasant, in no acute distress Head: Normocephalic Eyes: EOM's intact, conjunctiva pink and moist, no icterus, sclera white, non-injected Ears: Right ear: External ear/canal- Normal, TM - clear with good landmarks. Left ear: External ear/canal- Normal, TM - erythematous, bulging Oropharynx:moist without lesions, No erythema, exudates or tonsillar hypertrophy. Heart: Negative. RRR without obvious murmur, gallop, or rubs. No ectopy. Lungs: clear to auscultation, without rales or wheeze, good air exchange PAST MEDICAL HISTORY Diagnosis Date Allergic rhinitis Benign essential tremor 03/17/2010 07/10/12 [place] PMH - PAST MEDICAL HISTORY OF 2007 right wrist fracture PAST SURGICAL HISTORY Procedure Laterality Date NONE ALLERGIES Patient has no known allergies. MEDICATIONS amoxicillin-clavul anate potassium (AUGMENTIN) 875-125 mg per tablet Take 1 tablet by mouth two times a day for 7 days. meclizine (ANTIVERT) 12.5 mg tab Take 1-2 tablets by mouth every 6 hours as needed (dizziness). (Patient not taking: Reported on 05/16/2023) fluticasone (FLONASE) 50 mcg/actuation nasal spray Use 2 Sprays in each nostril once daily. Rinse mouth after use. (Patient not taking: Reported on 05/16/2023) Adapalene-Benzoyl Peroxide (EPIDUO) 0.1-2.5 % gel Apply 1 application to affected area once daily. (Patient not taking: Reported on 04/11/2022) FAMILY HISTORY Problem Relation Age of Onset other (chrons [Other]) Father other (rheumatoid arthritis [Other]) Mother other (lupus [Other]) Maternal Grandmother kidney transplant other (rheumatoid arthritis [Other]) Maternal Grandmother Hypertension Maternal Grandmother other (MVP [Other]) Maternal Aunt other (hypothyroid [Other]) Maternal Aunt Breast Cancer Paternal Grandmother other (hodgkins [Other]) Paternal Grandmother Diabetes Paternal Grandfather Heart Mother Aortic/ Mitral Aortic Valve Social History Tobacco Use Smoking status: Never Substance Use Topics Alcohol use: No Drug use: No ASSESSMENT/PLAN: 1. Acute otitis media, left - ICD9: 382.9, ICD10: H66.92 - AMOXICILLIN 875 MG-POTASSIUM CLAVULANATE 125 MG TABLET Prescription instructions reviewed with patient as applicable. Potential red flag symptoms discussed with the patient. Reviewed appropriate action plan to take if red flag symptoms occur. Patient agreeable to treatment plan. Renetta Leggett APRN.PAPER BAG MACHINE OPERATOR Allergies As of Date: 05/29/2023 (No Known Allergies) Date Reviewed: 05/29/2023 Reviewed by: Moni Albert MA - Fully Assessed Reason for Visit: Ear Problem [38] Cmt: L ear pressure, no constant pain x1 day, pain with chewing Primary Visit Diagnosis:Acute otitis media, left [H66.92] Order(s):amoxicill in-clavulanate potassium (AUGMENTIN) 875-125 mg per tabletTake 1 tablet by mouth two times a day for 7 days.Disp: 14 tabletRfl: 0 Prescriptions as of 05/29/2023 - amoxicillin-clavul anate potassium (AUGMENTIN) 875-125 mg per tablet Take 1 tablet by mouth two times a day for 7 days. - meclizine (ANTIVERT) 12.5 mg tab Take 1-2 tablets by mouth every 6 hours as needed (dizziness). - fluticasone (FLONASE) 50 mcg/actuation nasal spray Use 2 Sprays in each nostril once daily. Rinse mouth after use. - Adapalene-Benzoyl Peroxide (EPIDUO) 0.1-2.5 % gel Apply 1 application to affected area once daily. Problem List As Of Date 05/29/2023 Noted Resolved Benign essential tremor [G25.0] 03/17/2010 Prescriptions ordered this encounter Disp Refills Start End AMOXICILLIN 875 MG-POTASSIUM CLAVULA* 14 t* 0 05/29/2023 06/05/2023 Route: ORAL Sig: Take 1 tablet by mouth (more content not included)... Normal [facility] CNOVon 05-16-2023 CNOV Office Visit ([facility]) -------- NOAH VILLEGAS ([id number]) 1995 M Date Time Provider Department 05/16/23 2:15 PM CATINA WAHL [facility] During your visit today, we recorded the following information about you: Temperature Pulse Respiration Blood pressure 97.9 degrees 93/minute 21/minute 164/100 Weight 130.3 kg Catina Wahl APRN.CNP 05/16/2023 2:10 PM Signed ASSESSMENT/PLAN: 1. Other acute nonsuppurative otitis media of both ears, recurrence not specified - ICD9: 381.00, ICD10: H65.193 (primary diagnosis) - Will begin treatment with as per antibiotic as written, see orders - The patient should also be given flonase nasal spray for the first 5-7 days of treatment. - Supportive care with plenty of fluids, rest, and analgesia prn. - AMOXICILLIN 875 MG TABLET 2. Elevated BP without diagnosis of hypertension - ICD9: 796.2, ICD10: R03.0 - Recommend home blood pressure monitoring, follow up with PCP if staying elevated above 140/90. - Follow-up with your PCP in 3-5 days if symptoms have not improved or sooner if symptoms worsen - Discussed red flags and need for immediate medical evaluation if any occur. - Discussed supportive care treatment with fluids, rest and analgesia. - Discussed expected course of illness CRISTIAN Zhao Kathy, APRN.CNP 05/16/2023 2:12 PM Signed Subjective Ear Problem Associated symptoms include hearing loss. Pertinent negatives include no coughing, headaches or sore throat. Noah Villegas is a 27 year old male who presents with left ear pain since last night. He rates his pain 4-5/10 but states it was an 8 last night. He took ibuprofen for pain last night. He denies fever or associated URI symptoms. States his hearing seems cloudy. Review of Systems Constitutional: Negative for chills and fever. HENT: Positive for ear pain and hearing loss. Negative for congestion and sore throat. Respiratory: Negative for cough. Cardiovascular: Negative. Neurological: Negative for dizziness and headaches. BP 164/100 Pulse 93 Temp 36.6 ?C (97.9 ?F) Resp 21 Wt 130.3 kg (287 lb 3.2 oz) SpO2 99% PAST MEDICAL HISTORY Diagnosis Date Allergic rhinitis Benign essential tremor 03/17/2010 07/10/12 [place] PMH - PAST MEDICAL HISTORY OF 2007 right wrist fracture PAST SURGICAL HISTORY Procedure Laterality Date NONE ALLERGIES Patient has no active allergies. MEDICATIONS amoxicillin (AMOXIL) 875 mg tablet Take 1 tablet by mouth two times a day for 7 days. meclizine (ANTIVERT) 12.5 mg tab Take 1-2 tablets by mouth every 6 hours as needed (dizziness). (Patient not taking: Reported on 05/16/2023) fluticasone (FLONASE) 50 mcg/actuation nasal spray Use 2 Sprays in each nostril once daily. Rinse mouth after use. (Patient not taking: Reported on 05/16/2023) Adapalene-Benzoyl Peroxide (EPIDUO) 0.1-2.5 % gel Apply 1 application to affected area once daily. (Patient not taking: Reported on 04/11/2022) FAMILY HISTORY Problem Relation Age of Onset other (chrons [Other]) Father other (rheumatoid arthritis [Other]) Mother other (lupus [Other]) Maternal Grandmother kidney transplant other (rheumatoid arthritis [Other]) Maternal Grandmother Hypertension Maternal Grandmother other (MVP [Other]) Maternal Aunt other (hypothyroid [Other]) Maternal Aunt Breast Cancer Paternal Grandmother other (hodgkins [Other]) Paternal Grandmother Diabetes Paternal Grandfather Heart Mother Aortic/ Mitral Aortic Valve Social History Tobacco Use Smoking status: Never Substance Use Topics Alcohol use: No Drug use: No Objective Physical Exam Vitals and nursing note reviewed. Constitutional: General: He is not in acute distress. Appearance: Normal appearance. He is obese. He is not ill-appearing. HENT: Right Ear: Ear canal and external ear normal. Tympanic membrane is injected. Left Ear: Ear canal and external ear normal. A middle ear effusion is present. Tympanic membrane is erythematous. Mouth/Throat: Pharynx: Uvula midline. Cardiovascular: Rate and Rhythm: Normal rate and regular rhythm. Heart sounds: Normal heart sounds. Pulmonary: Effort: Pulmonary effort is normal. No respiratory distress. Breath sounds: Normal breath sounds. No wheezing or rales. Musculoskeletal: Cervical back: Neck supple. Skin: General: Skin is warm and dry. Findings: No erythema or rash. Neurological: Mental Status: He is alert. ASSESSMENT/PLAN: 1. Other acute nonsuppurative otitis media of both ears, recurrence not specified - ICD9: 381.00, ICD10: H65.193 (primary diagnosis) - Will begin treatment with as per antibiotic as written, see orders - The patient should also be given flonase nasal spray for the first 5-7 days of treatment. - Supportive care with plenty of fluids, rest, and analgesia prn. - AM (more content not included)... Normal [facility] Vital Signs Date Time Vital Sign Value Performing Clinician Arian nagel 05-29-2023 09:06-0500 Body temperature 97.5 [degF] Renetta Leggett APRN.PAPER BAG MACHINE OPERATOR Work Phone: [facility] 05-29-2023 09:06-0500 Body weight 127.01 kg Renetta Leggett APRN.PAPER BAG MACHINE OPERATOR Work Phone: [facility] 05-29-2023 09:06-0500 Diastolic blood pressure 90 mm[Hg] Renetta Leggett APRN.PAPER BAG MACHINE OPERATOR Work Phone: [facility] 05-29-2023 09:06-0500 Heart rate 91 /min Renetta Leggett APRN.PAPER BAG MACHINE OPERATOR Work Phone: [facility] 05-29-2023 09:06-0500 Respiratory rate 18 /min Renetta Leggett APRN.PAPER BAG MACHINE OPERATOR Work Phone: [facility] 05-29-2023 09:06-0500 SaO2% (BldA) [Mass fraction] 99 % Renetta Leggett APRN.PAPER BAG MACHINE OPERATOR Work Phone: [facility] 05-29-2023 09:06-0500 Systolic blood pressure 151 mm[Hg] Renetta Leggett APRN.PAPER BAG MACHINE OPERATOR Work Phone: [facility] 04-11-2022 13:16-0500 Body temperature 97.5 [degF] Marleny Monge APRN.PAPER BAG MACHINE OPERATOR Work Phone: [facility] 04-11-2022 13:16-0500 Body weight 120.66 kg Marleny Older BROOM MAN.PAPER BAG MACHINE OPERATOR Work Phone: [facility] 04-11-2022 13:16-0500 Diastolic blood pressure 88 mm[Hg] Marleny Older BROOM MAN.PAPER BAG MACHINE OPERATOR Work Phone: [facility] 04-11-2022 13:16-0500 Heart rate 95 /min Marleny Older BROOM MAN.PAPER BAG MACHINE OPERATOR Work Phone: [facility] 04-11-2022 13:16-0500 Respiratory rate 16 /min Marleny Older BROOM MAN.PAPER BAG MACHINE OPERATOR Work Phone: [facility] 04-11-2022 13:16-0500 SaO2% (BldA) [Mass fraction] 99 % Marleny Older BROOM MAN.PAPER BAG MACHINE OPERATOR Work Phone: [facility] 04-11-2022 13:16-0500 Systolic blood pressure 132 mm[Hg] Marleny Older BROOM MAN.PAPER BAG MACHINE OPERATOR Work Phone: [facility] Encounters Encounter Date Encounter Type Care Provider Facility Start: 12-10-2024 ambulatory Noel Payne NP Facility:[facility] Start: 12-07-2024 [facility] Start: 12-22-2023 End: 12-22-2023 ambulatory NOEL PAYNE BROOM MAN - PAPER BAG MACHINE OPERATOR Facility:[facility] Start: 12-22-2023 End: 12-22-2023 Patient encounter procedure NOEL PAYNE BROOM MAN - PAPER BAG MACHINE OPERATOR [facility] Start: 05-29-2023 End: 05-29-2023 ambulatory Facility:[facility] Start: 05-29-2023 End: 05-29-2023 Patient encounter procedure Renetta Leggett BROOM MAN.PAPER BAG MACHINE OPERATOR Work Phone: [facility] Comment on above: Acute otitis media, left (Primary Dx) Start: 05-16-2023 End: 05-16-2023 ambulatory Facility:[facility] Start: 04-11-2022 End: 04-11-2022 Patient encounter procedure Marleny Older BROOM MAN.PAPER BAG MACHINE OPERATOR Work Phone: [facility] Comment on above: Eustachian tube dysf unction, bilateral (Primary Dx); Vertigo Plan of Treatment Date Care Activity Detail Author Start: 02-26-2031 Urine microalbumin profile DTa P,Tdap,Td Vaccine (8 - Td or Tdap) [facility] Start: 05-02-2023 Depression Assessment Depression Ass hind [facility] hospital[facility] Start: 12-31-2022 Influenza vaccination Influenza Vacc ine (#1) [facility] Start: 12-31-2021 Influenza vaccination INFLUENZA (#1) [facility] Start: 05-02-2021 [facility] Start: 03-26-2021 HPV Vaccine (2 - Mal e 3-dose series) HPV Vaccine (2 - Male 3-dose series) [facility] Start: 12-27-2019 Urine microalbumin profile DTA P,TDAP,TD (7 - Td or Tdap) [facility] Start: 2014 HEPATITIS C SCREENING HEPATITIS C [facility] Start: 2014 Hepatitis C screening Hepatitis C [facility] Start: 2014 HIV SCREENING HIV SCREENING [facility] Start: 2014 HIV screening HIV Screening [facility] Start: 2010 PEDS TO ADULT TRANSI TION ANNUAL ASSESSMENT PEDS TO ADULT TRANSITION ANNUAL ASSESSMENT [facility] Start: 2008 PEDS TO ADULT TRANSI TION INITIAL DISCUSSION PEDS TO ADULT TRANSITION INITIAL DISCUSSION [facility] Start: 12-30-2007 HPV VACCINE (1 - Mal e 2-dose series) HPV VACCINE (1 - Male 2-dose series) [facility] Start: 06-29-1997 COVID-19 VACCINE (#1) COVID-19 VACCI NE (#1) [facility] Immunizations Immunization Date Immunization Notes Care Provider Fa cili 02-26-2021 influenza virus vacc ine, unspecified formulation Renetta Leggett BROOM MAN.PAPER BAG MACHINE OPERATOR Work Phone: [facility] 09-15-2020 SARS-CoV-2 (COVID-19 ) mRNA-[id number] vaccine NOEL PAYNE BROOM MAN - PAPER BAG MACHINE OPERATOR [facility] [place] Comment on above: Result Comment: 2023: T[facility] 08-18-2020 SARS-CoV-2 (COVID-19 ) mRNA-[id number] vaccine NOEL PAYNE BROOM MAN - PAPER BAG MACHINE OPERATOR [facility] [place] Comment on above: Result Comment: 2023: T[facility] 09-09-2014 meningococcal polysaccharide (groups A, C, Y and W-135) diphtheria toxoid conjugate vaccine (MCV4P) NOEL PAYNE BROOM MAN - PAPER BAG MACHINE OPERATOR [facility] [place] 09-09-2014 varicella virus vaccine KRISTINE PAYNE BROOM MAN - PAPER BAG MACHINE OPERATOR [facility] [place] 12-26-2009 meningococcal polysaccharide (groups A, C, Y and W-135) diphtheria toxoid conjugate vaccine (MCV4P) NOEL PAYNE BROOM MAN - PAPER BAG MACHINE OPERATOR [facility] [place] 12-26-2009 Meningococcal, MCV4, unspecified conjugate formulation(groups A, C, Y and W-135) Marleny Older BROOM MAN.PAPER BAG MACHINE OPERATOR Work Phone: [facility] Work Phone: 12-26-2009 tetanus toxoid, redu anselmo diphtheria toxoid, and acellular pertussis vaccine, adsorbed Marleny Older BROOM MAN.PAPER BAG MACHINE OPERATOR Work Phone: [facility] Work Phone: 01-12-2002 diphtheria, tetanus toxoids and acellular pertussis vaccine Marleny Older BROOM MAN.PAPER BAG MACHINE OPERATOR Work Phone: [facility] Work Phone: 01-12-2002 measles, mumps and rubella virus vaccine Marleny Older BROOM MAN.PAPER BAG MACHINE OPERATOR Work Phone: [facility] Work Phone: 01-12-2002 measles/mumps/rubell a virus vaccine NOEL PAYNE BROOM MAN - PAPER BAG MACHINE OPERATOR [facility] [place] 01-12-2002 poliovirus vaccine, inactivated Marleny Older BROOM MAN.PAPER BAG MACHINE OPERATOR Work Phone: [facility] Work Phone: 02-13-1999 varicella virus vaccine Marleny Older BROOM MAN.PAPER BAG MACHINE OPERATOR Work Phone: [facility] Work Phone: 03-26-1998 diphtheria, tetanus toxoids and acellular pertussis vaccine Marleny Older BROOM MAN.PAPER BAG MACHINE OPERATOR Work Phone: [facility] Work Phone: 03-26-1998 haemophilus influenz ae type b vaccine, HbOC conjugate Marleny Older BROOM MAN.PAPER BAG MACHINE OPERATOR Work Phone: [facility] Work Phone: 03-26-1998 measles, mumps and rubella virus vaccine Marleny Older BROOM MAN.PAPER BAG MACHINE OPERATOR Work Phone: [facility] Work Phone: 03-26-1998 measles/mumps/rubell a virus vaccine NOEL PAYNE BROOM MAN - PAPER BAG MACHINE OPERATOR [facility] [place] 03-26-1998 poliovirus vaccine, inactivated Marleny Older BROOM MAN.PAPER BAG MACHINE OPERATOR Work Phone: [facility] Work Phone: 10-11-1997 hepatitis B pediatri c vaccine NOEL PAYNE BROOM MAN - PAPER BAG MACHINE OPERATOR [facility] [place] 10-11-1997 hepatitis B vaccine, pediatric or pediatric/adolescent dosage Marleny Older BROOM MAN.PAPER BAG MACHINE OPERATOR Work Phone: [facility] Work Phone: 07-03-1997 diphtheria, tetanus toxoids and acellular pertussis vaccine Marleny Older BROOM MAN.PAPER BAG MACHINE OPERATOR Work Phone: [facility] Work Phone: 07-03-1997 haemophilus influenz ae type b vaccine, HbOC conjugate Marleny Older BROOM MAN.PAPER BAG MACHINE OPERATOR Work Phone: [facility] Work Phone: 05-06-1997 diphtheria, tetanus toxoids and acellular pertussis vaccine Marleny Older BROOM MAN.PAPER BAG MACHINE OPERATOR Work Phone: [facility] Work Phone: 05-06-1997 haemophilus influenz ae type b vaccine, HbOC conjugate Marleny Older BROOM MAN.PAPER BAG MACHINE OPERATOR Work Phone: [facility] Work Phone: 05-06-1997 poliovirus vaccine, inactivated Marleny Older BROOM MAN.PAPER BAG MACHINE OPERATOR Work Phone: [facility] Work Phone: 03-07-1997 diphtheria, tetanus toxoids and acellular pertussis vaccine Marleny Older BROOM MAN.PAPER BAG MACHINE OPERATOR Work Phone: [facility] Work Phone: 03-07-1997 haemophilus influenz ae type b vaccine, HbOC conjugate Marleny Older BROOM MAN.PAPER BAG MACHINE OPERATOR Work Phone: [facility] Work Phone: 03-07-1997 poliovirus vaccine, inactivated Marleny Older BROOM MAN.[facility] Work Phone: [facility] Work Phone: 01-31-1997 hepatitis B pediatri c vaccine NOEL PAYNE BROOM MAN - [facility]1997 hepatitis B vaccine, pediatric or pediatric/adolescent dosage Marleny Older BROOM MAN.PAPER BAG MACHINE OPERATOR Work Phone: [facility] Work Phone: 1996 hepatitis B pediatri c vaccine NOEL PAYNE BROOM MAN - [facility] 1996 hepatitis B vaccine, pediatric or pediatric/adolescent dosage Marleny Older BROOM MAN.PAPER BAG MACHINE OPERATOR Work Phone: [facility] Work Phone: Payers Date Payer Category Payer Self-pay 2021 Private Health Insurance LAURENT LAWLER OAP [id number] 2021-Present [phone] [facility] [id number] [place]O [id number] Open Access [id number] 2021 Private Health Insurance [id number] 1995 Unknown [id number] Unknown [id number] Unknown [id number] Social History Date Type Detail Facility Start: 12-19-2023 Tobacco smoking stat [facility] Never smoked tobacco [facility] Work Phone: Start: 04-11-2022 End: 05-29-2023 Alcohol intake Current non-drinker of alcohol (finding) [facility] Start: 1995 Sex Assigned At Not on file [facility] Start: 05-29-2023 History of Social function [facility] Start: 05-29-2023 Tobacco use panel [facility] Sex Assigned At Male [facility] Clinical Notes 04-11-2022 to 12-22-2023 Renetta Mcqueen APRN.CNP - 05/29/2023 9:18 AM ESTPatient Eladio Monge APRN.CNP - 04/11/2022 1:41 PM EST Note Date & Type Note Facility 12-22-2023 Evaluation + Plan note Future Scheduled [id number] Hemoglobin 12/22/23Lipid Profile 12/22/23Complete Metabolic Panel 12/22/23 [facility] 05-29-2023 Note HNO ID: [id number] Author: RENETTA LEGGETT APRN.CNP Service: ? Author Type: Nurse Practitioner Type: Progress Notes Filed: 05/29/2023 09:20 Note Text: CC: Patient presents with: Ear Problem: L ear pressure, no constant pain x1 day, pain with chewing HPI: Noah Villegas is a 27 year old male who presents to the office with complaint of ear symptoms for the past day. Symptoms are staying the same. Associated symptoms includes ear pressure . Denies fever, nausea, vomiting , and diarrhea. Treatments tried include nothing so far. with no relief of symptoms. Sick contacts: unknown. History of asthma, frequent episodes of bronchitis, chronic bronchitis, bronchiectasis or COPD: No Smoker: No Seasonal/environmental allergies: No The ROS is otherwise negative. The patient's pmh, medications, allergies, and past visits are reviewed. PHYSICAL EXAM: BP 151/90 Pulse 91 Temp 36.4 ?C (97.5 ?F) Resp 18 Wt 127 kg (280 lb) SpO2 99% General appearance: alert, cooperative, pleasant, in no acute distress Head: Normocephalic Eyes: EOM's intact, conjunctiva pink and moist, no icterus, sclera white, non-injected Ears: Right ear: External ear/canal- Normal, TM - clear with good landmarks. Left ear: External ear/canal- Normal, TM - erythematous, bulging Oropharynx:moist without lesions, No erythema, exudates or tonsillar hypertrophy. Heart: Negative. RRR without obvious murmur, gallop, or rubs. No ectopy. Lungs: clear to auscultation, without rales or wheeze, good air exchange PAST MEDICAL HISTORY Diagnosis Date Allergic rhinitis Benign essential tremor 03/17/2010 07/10/12 [place] PMH - PAST MEDICAL HISTORY OF 2007 right wrist fracture PAST SURGICAL HISTORY Procedure Laterality Date NONE ALLERGIES Patient has no known allergies. MEDICATIONS amoxicillin-clavulanate potassium (AUGMENTIN) 875-125 mg per tablet Take 1 tablet by mouth two times a day for 7 days. meclizine (ANTIVERT) 12.5 mg tab Take 1-2 tablets by mouth every 6 hours as needed (dizziness). (Patient not taking: Reported on 05/16/2023) fluticasone (FLONASE) 50 mcg/actuation nasal spray Use 2 Sprays in each nostril once daily. Rinse mouth after use. (Patient not taking: Reported on 05/16/2023) Adapalene-Benzoyl Peroxide (EPIDUO) 0.1-2.5 % gel Apply 1 application to affected area once daily. (Patient not taking: Reported on 04/11/2022) FAMILY HISTORY Problem Relation Age of Onset other (chrons [Other]) Father other (rheumatoid arthritis [Other]) Mother other (lupus [Other]) Maternal Grandmother kidney transplant other (rheumatoid arthritis [Other]) Maternal Grandmother Hypertension Maternal Grandmother other (MVP [Other]) Maternal Aunt other (hypothyroid [Other]) Maternal Aunt Breast Cancer Paternal Grandmother other (hodgkins [Other]) Paternal Grandmother Diabetes Paternal Grandfather Heart Mother Aortic/ Mitral Aortic Valve Social History Tobacco Use Smoking status: Never Substance Use Topics Alcohol use: No Drug use: No ASSESSMENT/PLAN: 1. Acute otitis media, left - ICD9: 382.9, ICD10: H66.92 - AMOXICILLIN 875 MG-POTASSIUM CLAVULANATE 125 MG TABLET Prescription instructions reviewed with patient as applicable. Potential red flag symptoms discussed with the patient. Reviewed appropriate action plan to take if red flag symptoms occur. Patient agreeable to treatment plan. Renetta Leggett APRN.[facility] 05-29-2023 History of Presen t illness Narrative CC: Patient presents with: Ear Problem: L ear pressure, no constant pain x1 day, pain with chewing HPI: Noah Villegas is a 27 year old male who presents to the office with complaint of ear symptoms for the past day. Symptoms are staying the same. Associated symptoms includes ear pressure . Denies fever, nausea, vomiting , and diarrhea. Treatments tried include nothing so far. with no relief of symptoms. Sick contacts: unknown. History of asthma, frequent episodes of bronchitis, chronic bronchitis, bronchiectasis or COPD: No Smoker: No Seasonal/environmental allergies: No The ROS is otherwise negative. The patient's pmh, medications, allergies, and past visits are reviewed. PHYSICAL EXAM: BP 151/90 Pulse 91 Temp 36.4 C (97.5 F) Resp 18 Wt 127 kg (280 lb) SpO2 99% General appearance: alert, cooperative, pleasant, in no acute distress Head: Normocephalic Eyes: EOM's intact, conjunctiva pink and moist, no icterus, sclera white, non-injected Ears: Right ear: External ear/canal- Normal, TM - clear with good landmarks. Left ear: External ear/canal- Normal, TM - erythematous, bulging Oropharynx:moist without lesions, No erythema, exudates or tonsillar hypertrophy. Heart: Negative. RRR without obvious murmur, gallop, or rubs. No ectopy. Lungs: clear to auscultation, without rales or wheeze, good air exchange PAST MEDICAL HISTORY Diagnosis Date Allergic rhinitis Benign essential tremor 03/17/2010 07/10/12 [place] TODAY PMH - PAST MEDICAL HISTORY OF 2007 right wrist fracture PAST SURGICAL HISTORY Procedure Laterality Date NONE ALLERGIES Patient has no known allergies. MEDICATIONS amoxicillin-clavulanate potassium (AUGMENTIN) 875-125 mg per tablet Take 1 tablet by mouth two times a day for 7 days. meclizine (ANTIVERT) 12.5 mg tab Take 1-2 tablets by mouth every 6 hours as needed (dizziness). (Patient not taking: Reported on 05/16/2023) fluticasone (FLONASE) 50 mcg/actuation nasal spray Use 2 Sprays in each nostril once daily. Rinse mouth after use. (Patient not taking: Reported on 05/16/2023) Adapalene-Benzoyl Peroxide (EPIDUO) 0.1-2.5 % gel Apply 1 application to affected area once daily. (Patient not taking: Reported on 04/11/2022) FAMILY HISTORY Problem Relation Age of Onset other (chrons [Other]) Father other (rheumatoid arthritis [Other]) Mother other (lupus [Other]) Maternal Grandmother kidney transplant other (rheumatoid arthritis [Other]) Maternal Grandmother Hypertension Maternal Grandmother other (MVP [Other]) Maternal Aunt other (hypothyroid [Other]) Maternal Aunt Breast Cancer Paternal Grandmother other (hodgkins [Other]) Paternal Grandmother Diabetes Paternal Grandfather Heart Mother Aortic/ Mitral Aortic Valve Social History Tobacco Use Smoking status: Never Substance Use Topics Alcohol use: No Drug use: No ASSESSMENT/PLAN: 1. Acute otitis media, left - ICD9: 382.9, ICD10: H66.92 - AMOXICILLIN 875 MG-POTASSIUM CLAVULANATE 125 MG TABLET Prescription instructions reviewed with patient as applicable. Potential red flag symptoms discussed with the patient. Reviewed appropriate action plan to take if red flag symptoms occur. Patient agreeable to treatment plan. Renetta Leggett APRN.PAPER BAG MACHINE OPERATOR documented in this encounter [facility] 05-16-2023 Note HNO ID: [id number] Author: CATINA WAHL APRN.JAQUELIN Service: ? Author Type: Nurse Practitioner Type: Progress Notes Filed: 05/16/2023 14:12 Note Text: Subjective Ear Problem Associated symptoms include hearing loss. Pertinent negatives include no coughing, headaches or sore throat. Noah Villegas is a 27 year old male who presents with left ear pain since last night. He rates his pain 4-5/10 but states it was an 8 last night. He took ibuprofen for pain last night. He denies fever or associated URI symptoms. States his hearing seems cloudy. Review of Systems Constitutional: Negative for chills and fever. HENT: Positive for ear pain and hearing loss. Negative for congestion and sore throat. Respiratory: Negative for cough. Cardiovascular: Negative. Neurological: Negative for dizziness and headaches. BP 164/100 Pulse 93 Temp 36.6 ?C (97.9 ?F) Resp 21 Wt 130.3 kg (287 lb 3.2 oz) SpO2 99% PAST MEDICAL HISTORY Diagnosis Date Allergic rhinitis Benign essential tremor 03/17/2010 07/10/12 [place] TODAY PMH - PAST MEDICAL HISTORY OF 2007 right wrist fracture PAST SURGICAL HISTORY Procedure Laterality Date NONE ALLERGIES Patient has no active allergies. MEDICATIONS amoxicillin (AMOXIL) 875 mg tablet Take 1 tablet by mouth two times a day for 7 days. meclizine (ANTIVERT) 12.5 mg tab Take 1-2 tablets by mouth every 6 hours as needed (dizziness). (Patient not taking: Reported on 05/16/2023) fluticasone (FLONASE) 50 mcg/actuation nasal spray Use 2 Sprays in each nostril once daily. Rinse mouth after use. (Patient not taking: Reported on 05/16/2023) Adapalene-Benzoyl Peroxide (EPIDUO) 0.1-2.5 % gel Apply 1 application to affected area once daily. (Patient not taking: Reported on 04/11/2022) FAMILY HISTORY Problem Relation Age of Onset other (chrons [Other]) Father other (rheumatoid arthritis [Other]) Mother other (lupus [Other]) Maternal Grandmother kidney transplant other (rheumatoid arthritis [Other]) Maternal Grandmother Hypertension Maternal Grandmother other (MVP [Other]) Maternal Aunt other (hypothyroid [Other]) Maternal Aunt Breast Cancer Paternal Grandmother other (hodgkins [Other]) Paternal Grandmother Diabetes Paternal Grandfather Heart Mother Aortic/ Mitral Aortic Valve Social History Tobacco Use Smoking status: Never Substance Use Topics Alcohol use: No Drug use: No Objective Physical Exam Vitals and nursing note reviewed. Constitutional: General: He is not in acute distress. Appearance: Normal appearance. He is obese. He is not ill-appearing. HENT: Right Ear: Ear canal and external ear normal. Tympanic membrane is injected. Left Ear: Ear canal and external ear normal. A middle ear effusion is present. Tympanic membrane is erythematous. Mouth/Throat: Pharynx: Uvula midline. Cardiovascular: Rate and Rhythm: Normal rate and regular rhythm. Heart sounds: Normal heart sounds. Pulmonary: Effort: Pulmonary effort is normal. No respiratory distress. Breath sounds: Normal breath sounds. No wheezing or rales. Musculoskeletal: Cervical back: Neck supple. Skin: General: Skin is warm and dry. Findings: No erythema or rash. Neurological: Mental Status: He is alert. ASSESSMENT/PLAN: 1. Other acute nonsuppurative otitis media of both ears, recurrence not specified - ICD9: 381.00, ICD10: H65.193 (primary diagnosis) - Will begin treatment with as per antibiotic as written, see orders - The patient should also be given flonase nasal spray for the first 5-7 days of treatment. - Supportive care with plenty of fluids, rest, and analgesia prn. - AMOXICILLIN 875 MG TABLET 2. Elevated BP without diagnosis of hypertension - ICD9: 796.2, ICD10: R03.0 - Recommend home blood pressure monitoring, follow up with PCP if staying elevated above 140/90. - Follow-up with your PCP in 3-5 days if symptoms have not improved or sooner if symptoms worsen - Discussed red flags and need for immediate medical evaluation if any occur. - Discussed supportive care treatment with fluids, rest and analgesia. - Discussed expected course of illness Catina Wahl APRN.[facility] 04-11-2022 Instructions Marleny Monge APRN.CNP - 04/11/2022 1:46 PM EST Start Flonase, use daily. Follow-up in 7 days if symptoms don't improve or sooner if worsening Take meclizine as needed for dizziness documented in this encounter [facility] 04-11-2022 History of Presen t illness Narrative CC: Patient presents with: Dizziness: With head pressure x 4 days off and on, wosrsening HPI: Noah Villegas is a 26 year old male who presents to the office with above complaint Symptoms began 4 days ago and include: Fever (?100.4F): No or Chills: No Cough: No Shortness of breath: No or Difficulty breathing: No Fatigue: No Muscle aches: No Headache: No New loss of smell or taste: No Sore throat: No Nasal congestion: No or Rhinorrhea: No Nausea: No or Vomiting: No Diarrhea: No Other Associated symptoms: facial pain/pressure and ear pressure. Also reports vertigo symptoms, feels like the room is spinning. Only occurs with head movements and position changes. OTC meds/remedies that patient has tried: nothing. Exposures: Sick contacts? No Family or close contacts with confirmed/probable COVID-19 in last 14 days? No COVID vaccine: No The ROS is otherwise negative. The patient's pmh, medications, allergies, and past visits are reviewed. PHYSICAL EXAM: BP 132/88 Pulse 95 Temp 36.4 C (97.5 F) Resp 16 Wt 120.7 kg (266 lb) SpO2 99% General appearance: tired/ill appearing, alert, cooperative, pleasant, in no acute distress Head: Normocephalic Eyes: conjunctiva pink and moist, no icterus, sclera white, non-injected. PERRLA. EOMI intact Ears: Right ear: External ear/canal- Normal, TM - clear with good landmarks. Left ear: External ear/canal- Normal, TM - clear with good landmarks Nose: clear, no sinus tenderness. Oropharynx:No erythema, exudates or tonsillar hypertrophy. Neck:supple and no adenopathy Heart: Negative. RRR without obvious murmur, gallop, or rubs. No ectopy. Lungs: clear to auscultation, without rales or wheeze, good air exchange Neuro: negative findings: speech normal, mental status intact, cranial nerves 2-12 intact, Romberg negative, muscle strength normal, finger to nose normal, gait normal including heel to toe ASSESSMENT/PLAN: 1. Eustachian tube dysfunction, bilateral - ICD9: 381.81, ICD10: H69.83 (primary diagnosis) No evidence of infection Start Flonase, see orders Follow-up with PCP in one week if symptoms don't improve 2. Vertigo - ICD9: 780.4, ICD10: R42 No alarm symptoms or exam findings. Take Antivert as needed Follow-up as above Prescription instructions reviewed with patient as applicable. Potential red flag symptoms discussed with the patient. Reviewed appropriate action plan to take if red flag symptoms occur. Patient agreeable to treatment plan. Marleny Monge APRN.CNP documented in this encounter [facility] Evaluation note Diagnosis Eustachian tube dysfunction, bilateral- Primary Vertigo Dizziness and giddiness documented [facility] Diagnosis Acute otitis media, left- Primary Unspecified otitis media documented in this encounter [facility] course Narrative No data available for this section [facility] Discharge instructions No data available for this section [facility] Progress note No data available for this section [facility] Summary Purpose Family History No Family History Records Found No data available for this section No Family History Records FoundNo Family History Records Found Advance Directives No Advanced Directives Records FoundNo Advanced Directives Records FoundNo Advanced Directives Records Found Additional Source Comments Source Comments (unrecognize d section and content) In the event this informatio n is protected by the Federal Confidentiality of Alcohol and Drug Abuse Patient Records regulations: The Federal rules restrict any use of the information to criminally investigate or prosecute any alcohol or drug abuse patient.[facility] the event this information is protected by the Federal Confidentiality of Alcohol and Drug Abuse Patient Records regulations: The Federal rules restrict any use of the information to criminally investigate or prosecute any alcohol or drug abuse patient.[facility] Reason for Visit (unrecogniz ed section and content) Reason Comments Dizziness With head pressure x 4 days off and on, wosrsening Reason Comments Ear Problem L ear pressure, no c onstant pain x1 day, pain with chewing (unrecognized sect ion and content) No Status Records FoundNo Status Records FoundNo Status Records Found INFORMATION SOURCE (unrecogn ized section and content) DATE CREATED AUTHOR 05/29/2023 [facility] DATE CREATED AUTHOR AUTHOR'S ORGANIZ ATION 12/24/2023 [facility] ([place]) DATE CREATED AUTHOR AUTHOR'S ORGANIZ ATION 12/09/2024 [facility] Patient Care team informatio n (unrecognized section and content) Care Team Personnel Name: NOEL PAYNE APRN - PAPER BAG MACHINE OPERATOR 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 This clinical summary was aggregated from multiple sources. Caution should be exercised in using it in the provision of clinical care. This summary normalizes information from multiple sources, and as a consequence, information in this document may materially change the coding, format and clinical context of patient data. In addition, data may be omitted in some cases. CLINICAL DECISIONS SHOULD BE BASED ON THE PRIMARY CLINICAL RECORDS. [facility] [employer] [facility]. provides no warranty or guarantee of the accuracy or completeness of information in this document.
--- OUTSIDE RECORDS SUMMARY | 2024-12-10 07:32 | XMS RPT_ITS | CCD ---
Author Organization [facility] Care Team Providers Care Director Of Income Tax Name Role Phone Unavailable Primary Care Provider Harvey PAYNE CREDIT UNION FIELD EXAMINER - RN LABOR AND DELIVERY, NOEL Fontenot Primary Care Phys ician KERRY CONTRERAS - NOEL HAMMER Attending U navailjt PAYNE APRN - RN LABOR AND DELIVERY, NOEL Fontenot Primary Care U navailable Pittak, Majano Referring Unavailable Pittak, Majano Attending Unavailable Kerry SOIL FERTILITY SPECIALIST, Noel Osorio Primary Care Unav ailable Kerry SOIL FERTILITY SPECIALIST, Noel Osorio Primary Care Unav ailable Pittak, Majano Referring Unavailable Pittak, Majano Attending Unavailable Allergies Allergy Classification Reported Allergen(s) Allergy Type Date of Onset Reaction(s) Facility (1 source) environmental [Other] Propensity to adverse reactions 0 [facility] Work Phone: (1 source) OTHER; Translations: [OTHER] Propensity to adverse reactions (disorder) 0 [facility] Repository Medications Current Medications Medication Drug Class(es) [...] Comment on above: Take 1 tablet by yaidra th two times a day for 7 [...] Absolute Lymph 2.51 X10 3/uL Normal 0.83-4.51 [facility] Comment on above: Performed By: #### L 400, L501.9985, L509.3001, L500.4100, L501.9520, L503.0106, L500.4050, L100.0100, L501.9310, L506.0200, L501.9187, L506.0400, L503.6150, L506.1001 #### [facility] [address] [place], [address] Absolute Neut 4.4 X10 3/uL Normal 2.0-7.7 [facility] Comment on above: Performed By: #### L 400, L501.9985, L509.3001, L500.4100, L501.9520, L503.0106, L500.4050, L100.0100, L501.9310, L506.0200, L501.9187, L506.0400, L503.6150, L506.1001 #### [facility] [address] [place], [address] Basophils/100 WBC (Bld) 0.5 % Normal 0-1 [facility] Comment on above: Performed By: #### L , L501.9985, L509.3001, L500.4100, L501.9520, L503.0106, L500.4050, L100.0100, L501.9310, L506.0200, L501.9187, L506.0400, L503.6150, L506.1001 #### [facility] [address] [place], [address] Eosinophils/100 WBC (Bld) 1.8 % Normal 0-5 [facility] Comment on above: Performed By: #### L 400, L501.9985, L509.3001, L500.4100, L501.9520, L503.0106, L500.4050, L100.0100, L501.9310, L506.0200, L501.9187, L506.0400, L503.6150, L506.1001 #### [facility] [address] [place], [place], [id number] (649) Erythrocyte distribution width (RBC) [Ratio] 12.2 % Normal 11.6-14.6 [facility] Comment on above: Performed By: #### L 400, L501.9985, L509.3001, L500.4100, L501.9520, L503.0106, L500.4050, L100.0100, L501.9310, L506.0200, L501.9187, L506.0400, L503.6150, L506.1001 #### [facility] [address] [place], [place], [phone] (303) Hematocrit (Bld) [Volume fraction] 43.4 % Normal 40-54 [facility] Comment on above: Performed By: #### L 400, L501.9985, L509.3001, L500.4100, L501.9520, L503.0106, L500.4050, L100.0100, L501.9310, L506.0200, L501.9187, L506.0400, L503.6150, L506.1001 #### [facility] [address] [place], [address] Hemoglobin (Bld) [Mass/Vol] 15.0 g/dL Normal 13.0-16.5 [facility] Comment on above: Performed By: #### L 400, L501.9985, L509.3001, L500.4100, L501.9520, L503.0106, L500.4050, L100.0100, L501.9310, L506.0200, L501.9187, L506.0400, L503.6150, L506.1001 #### [facility] [address] [place], [address] IG% 0.400 Normal 0.0-0.9 [facility] Comment on above: Result Comment: IG% - Immature Granulocytes (promyelocytes, myelocytes and metamyelocytes) > 1% indicates that a LEFT SHIFT is Present. Performed By: #### L 400.2010, L501.9985, L509.3001, L500.4100, L501.9520, L503.0106, L500.4050, L100.0100, L501.9310, L506.0200, L501.9187, L506.0400, L503.6150, L506.1001 #### [facility] [address] [place], [address] (605 Lymphocytes/100 WBC (Bld) 32.9 % Normal 19-41 [facility] Comment on above: Performed By: #### L 400, L501.9985, L509.3001, L500.4100, L501.9520, L503.0106, L500.4050, L100.0100, L501.9310, L506.0200, L501.9187, L506.0400, L503.6150, L506.1001 #### [facility] [address] [facility] [place], [address] (018) MCH (RBC) [Entitic mass] 31.6 pg Normal 27.0-32.0 [facility] Comment on above: Performed By: #### L 400, L501.9985, L509.3001, L500.4100, L501.9520, L503.0106, L500.4050, L100.0100, L501.9310, L506.0200, L501.9187, L506.0400, L503.6150, L506.1001 #### [facility] [address] [place], [address] MCHC (RBC) [Mass/Vol] 34.6 g/dL Normal 32-36 [facility] Comment on above: Performed By: #### L 400, L501.9985, L509.3001, L500.4100, L501.9520, L503.0106, L500.4050, L100.0100, L501.9310, L506.0200, L501.9187, L506.0400, L503.6150, L506.1001 #### [facility] [address] [place], [address] MCV (RBC) [Entitic vol] 91.4 fL Normal 80-94 [facility] Comment on above: Performed By: #### L 400, L501.9985, L509.3001, L500.4100, L501.9520, L503.0106, L500.4050, L100.0100, L501.9310, L506.0200, L501.9187, L506.0400, L503.6150, L506.1001 #### [facility] [address] [place], [address] Monocytes/100 WBC (Bld) 6.9 % Normal 0-10 [facility] Comment on above: Performed By: #### L 400, L501.9985, L509.3001, L500.4100, L501.9520, L503.0106, L500.4050, L100.0100, L501.9310, L506.0200, L501.9187, L506.0400, L503.6150, L506.1001 #### [facility] [address] [place], [address] Neutrophils/100 WBC (Bld) 57.5 % Normal 47-70 [facility] Comment on above: Performed By: #### L 400, L501.9985, L509.3001, L500.4100, L501.9520, L503.0106, L500.4050, L100.0100, L501.9310, L506.0200, L501.9187, L506.0400, L503.6150, L506.1001 #### [facility] [address] [place], [address] Nucleated RBC (Bld) [#/Vol] 0 10*3/uL Normal 0-5 [facility] Comment on above: Performed By: #### L 400.2010, L501.9985, L509.3001, L500.4100, L501.9520, L503.0106, L500.4050, L100.0100, L501.9310, L506.0200, L501.9187, L506.0400, L503.6150, L506.1001 #### [facility] [address] [place], [address] Platelet mean volume (Bld) [Entitic vol] 10.7 fL Normal 6.2-12.0 [facility] Comment on above: Performed By: #### L 400.2010, L501.9985, L509.3001, L500.4100, L501.9520, L503.0106, L500.4050, L100.0100, L501.9310, L506.0200, L501.9187, L506.0400, L503.6150, L506.1001 #### [facility] [address] [place], [address] Platelets (Bld) [#/Vol] 228 10*3/uL Normal 150-450 [facility] Comment on above: Performed By: #### L 400, L501.9985, L509.3001, L500.4100, L501.9520, L503.0106, L500.4050, L100.0100, L501.9310, L506.0200, L501.9187, L506.0400, L503.6150, L506.1001 #### [facility] [address] [place], [address] RBC (Bld) [#/Vol] 4.75 10*6/uL Normal 4.6-6.2 [facility] Comment on above: Performed By: #### L , L501.9985, L509.3001, L500.4100, L501.9520, L503.0106, L500.4050, L100.0100, L501.9310, L506.0200, L501.9187, L506.0400, L503.6150, L506.1001 #### [facility] [address] [place], [address] RDW SD 40.9 fl Normal 35.1-43.9 [facility] Comment on above: Performed By: #### L , L501.9985, L509.3001, L500.4100, L501.9520, L503.0106, L500.4050, L100.0100, L501.9310, L506.0200, L501.9187, L506.0400, L503.6150, L506.1001 #### [facility] [address] [facility] [place], [address] WBC (Bld) [#/Vol] 7.6 10*3/uL Normal 4.4-11.0 [facility] Comment on above: Performed By: #### L , L501.9985, L509.3001, L500.4100, L501.9520, L503.0106, L500.4050, L100.0100, L501.9310, L506.0200, L501.9187, L506.0400, L503.6150, L506.1001 #### [facility] [address] [place], [address] Comprehensive Metabolic Prof gaon 12-07-2024 Albumin [Mass/Vol] 4.3 g/dL Normal 3.5-5.0 [facility] Comment on above: Performed By: #### L , L501.9985, L509.3001, L500.4100, L501.9520, L503.0106, L500.4050, L100.0100, L501.9310, L506.0200, L501.9187, L506.0400, L503.6150, L506.1001 #### [facility] [address] [place], [place], [id number] (810) Albumin/Globulin [Mass ratio] 1.7 {ratio} Normal 0.9-2.4 [facility] Comment on above: Performed By: #### L 400, L501.9985, L509.3001, L500.4100, L501.9520, L503.0106, L500.4050, L100.0100, L501.9310, L506.0200, L501.9187, L506.0400, L503.6150, L506.1001 #### [facility] [address] [place], [place], [id number] ALK PHOS 68 U/L Normal 40-129 [facility] Comment on above: Performed By: #### L , L501.9985, L509.3001, L500.4100, L501.9520, L503.0106, L500.4050, L100.0100, L501.9310, L506.0200, L501.9187, L506.0400, L503.6150, L506.1001 #### [facility] [address] [place], [place], [phone] (346) ALT [Catalytic activity/Vol] 81 U/L High <=46 [facility] Comment on above: Performed By: #### L 400, L501.9985, L509.3001, L500.4100, L501.9520, L503.0106, L500.4050, L100.0100, L501.9310, L506.0200, L501.9187, L506.0400, L503.6150, L506.1001 #### [facility] [address] [place], [place], [id number] AST [Catalytic activity/Vol] 36 U/L Normal <=37 [facility] Comment on above: Performed By: #### L 400, L501.9985, L509.3001, L500.4100, L501.9520, L503.0106, L500.4050, L100.0100, L501.9310, L506.0200, L501.9187, L506.0400, L503.6150, L506.1001 #### [facility] [address] [place], [place], [id number] Bilirubin [Mass/Vol] 0.43 mg/dL Normal 0.00-1.30 [facility] Comment on above: Performed By: #### L , L501.9985, L509.3001, L500.4100, L501.9520, L503.0106, L500.4050, L100.0100, L501.9310, L506.0200, L501.9187, L506.0400, L503.6150, L506.1001 #### [facility] [address] [place], [place], [id number] BUN/CRE 11.0 RATIO Normal 10-20 [facility] Comment on above: Performed By: #### L 400, L501.9985, L509.3001, L500.4100, L501.9520, L503.0106, L500.4050, L100.0100, L501.9310, L506.0200, L501.9187, L506.0400, L503.6150, L506.1001 #### [facility] [address] [place], [place], [id number] Calcium [Mass/Vol] 9.3 mg/dL Normal 7.6-11.0 [facility] Comment on above: Performed By: #### L 400.2010, L501.9985, L509.3001, L500.4100, L501.9520, L503.0106, L500.4050, L100.0100, L501.9310, L506.0200, L501.9187, L506.0400, L503.6150, L506.1001 #### [facility] [address] [place], [address] Chloride [Moles/Vol] 104 mmol/L Normal 98-108 [facility] Comment on above: Performed By: #### L 400, L501.9985, L509.3001, L500.4100, L501.9520, L503.0106, L500.4050, L100.0100, L501.9310, L506.0200, L501.9187, L506.0400, L503.6150, L506.1001 #### [facility] [address] [place], [place], [id number] (928) CO2 [Moles/Vol] 23.1 mmol/L Normal 21.0-32.0 [facility] Comment on above: Performed By: #### L , L501.9985, L509.3001, L500.4100, L501.9520, L503.0106, L500.4050, L100.0100, L501.9310, L506.0200, L501.9187, L506.0400, L503.6150, L506.1001 #### [facility] [address] [place], [place], [phone] (096) Creatinine [Mass/Vol] 0.95 mg/dL Normal 0.70-1.20 [facility] Comment on above: Performed By: #### L 400, L501.9985, L509.3001, L500.4100, L501.9520, L503.0106, L500.4050, L100.0100, L501.9310, L506.0200, L501.9187, L506.0400, L503.6150, L506.1001 #### [facility] [address] [facility] [place], [place], [id number] GAP 13 Normal 5-15 [facility] Comment on above: Performed By: #### L 400, L501.9985, L509.3001, L500.4100, L501.9520, L503.0106, L500.4050, L100.0100, L501.9310, L506.0200, L501.9187, L506.0400, L503.6150, L506.1001 #### [facility] [address] [facility] [place], [address] GFR/1.73 sq M.predicted among non-blacks MDRD (S/P/Bld) [Vol rate/Area] 113 mL/min/{1.73_m2} Normal >60 [facility] Comment on above: Result Comment: mL/m in/1.73m2 CKD-EPI Creatinine Equation (2020) Performed By: #### L , L501.9985, L509.3001, L500.4100, L501.9520, L503.0106, L500.4050, L100.0100, L501.9310, L506.0200, L501.9187, L506.0400, L503.6150, L506.1001 #### [facility] [address] [place], [address] Globulin (S) [Mass/Vol] 2.5 g/dL Normal 2.2-4.2 [facility] Comment on above: Performed By: #### L 400, L501.9985, L509.3001, L500.4100, L501.9520, L503.0106, L500.4050, L100.0100, L501.9310, L506.0200, L501.9187, L506.0400, L503.6150, L506.1001 #### [facility] [address] [place], [address] Glucose [Mass/Vol] 155 mg/dL High 70-99 [facility] Comment on above: Performed By: #### L 400, L501.9985, L509.3001, L500.4100, L501.9520, L503.0106, L500.4050, L100.0100, L501.9310, L506.0200, L501.9187, L506.0400, L503.6150, L506.1001 #### [facility] [address] [place], [address] Potassium [Moles/Vol] 4.1 mmol/L Normal 3.3-5.1 [facility] Comment on above: Performed By: #### L 400, L501.9985, L509.3001, L500.4100, L501.9520, L503.0106, L500.4050, L100.0100, L501.9310, L506.0200, L501.9187, L506.0400, L503.6150, L506.1001 #### [facility] [address] [place], [address] Sodium [Moles/Vol] 140 mmol/L Normal 133-145 [facility] Comment on above: Performed By: #### L 400, L501.9985, L509.3001, L500.4100, L501.9520, L503.0106, L500.4050, L100.0100, L501.9310, L506.0200, L501.9187, L506.0400, L503.6150, L506.1001 #### [facility] [address] [place], [address] T PROT 6.9 g/dL Normal 5.9-8.4 [facility] Comment on above: Performed By: #### L 400.2010, L501.9985, L509.3001, L500.4100, L501.9520, L503.0106, L500.4050, L100.0100, L501.9310, L506.0200, L501.9187, L506.0400, L503.6150, L506.1001 #### [facility] [address] [place], [address] Urea nitrogen [Mass/Vol] 10 mg/dL Normal 4-19 [facility] Comment on above: Performed By: #### L 400.2010, L501.9985, L509.3001, L500.4100, L501.9520, L503.0106, L500.4050, L100.0100, L501.9310, L506.0200, L501.9187, L506.0400, L503.6150, L506.1001 #### [facility] [address] [place], [address] Folates,Serum (Folic Acid)on 12-07-2024 FOLATES,SERUM 16.10 ng/mL Normal 4.60-34.80 [facility] Comment on above: Order Comment: N Performed By: #### L 400.2010, L501.9985, L509.3001, L500.4100, L501.9520, L503.0106, L500.4050, L100.0100, L501.9310, L506.0200, L501.9187, L506.0400, L503.6150, L506.1001 #### [facility] [address] [place], [address] Hemoglobin A1con 12-07-2024 HbA1c (Bld) [Mass fraction] 6.6 % High <=5.6 [facility] Comment on above: Result Comment: Norm al < 5.7 % Prediabetic 5.7 - 6.4 % Diabetic >or= 6.5 % Please note range changes. Performed By: #### L 400.2010, L501.9985, L509.3001, L500.4100, L501.9520, L503.0106, L500.4050, L100.0100, L501.9310, L506.0200, L501.9187, L506.0400, L503.6150, L506.1001 #### [facility] [address] [place], [address] Ironon 12-07-2024 Iron [Mass/Vol] 136 ug/dL Normal 65-175 [facility] Comment on above: Performed By: #### L 400.2010, L501.9985, L509.3001, L500.4100, L501.9520, L503.0106, L500.4050, L100.0100, L501.9310, L506.0200, L501.9187, L506.0400, L503.6150, L506.1001 #### [facility] [address] [place], [address] L501.9187on 12-07-2024 T3 Total 1.40 ng/mL Normal 0.80-2.00 [facility] Comment on above: Performed By: #### L 400.2010, L501.9985, L509.3001, L500.4100, L501.9520, L503.0106, L500.4050, L100.0100, L501.9310, L506.0200, L501.9187, L506.0400, L503.6150, L506.1001 #### [facility] [address] [place], [address] L509.3001on 12-07-2024 Testosterone [Mass/Vol] 307.00 ng/dL Normal 300-1080 [facility] Comment on above: Performed By: #### L 400, L501.9985, L509.3001, L500.4100, L501.9520, L503.0106, L500.4050, L100.0100, L501.9310, L506.0200, L501.9187, L506.0400, L503.6150, L506.1001 #### [facility] [address] [place], [place], [id number] Lipid Profileon 12-07-2024 CHOL:HDL 5.09 Normal [facility] Comment on above: Performed By: #### L 400.2010, L501.9985, L509.3001, L500.4100, L501.9520, L503.0106, L500.4050, L100.0100, L501.9310, L506.0200, L501.9187, L506.0400, L503.6150, L506.1001 #### [facility] [address] [place], [address] Cholesterol [Mass/Vol] 196 mg/dL Normal <=200 [facility] Comment on above: Result Comment: Chol esterol level, Desirable <200 mg/dL Borderline high cholesterol 200-239 mg/dL High cholesterol >=240 mg/dL Recommendations of the NCEP Adult Treatment Panel for the following risk-cutoff thresholds for the [place] population. Performed By: #### L 400, L501.9985, L509.3001, L500.4100, L501.9520, L503.0106, L500.4050, L100.0100, L501.9310, L506.0200, L501.9187, L506.0400, L503.6150, L506.1001 #### [facility] [address] [place], [place], [id number] Cholesterol in HDL [Mass/Vol] 39 mg/dL Low [facility] Comment on above: Result Comment: Cyndi [...] L501.9310, L506.0200, L501.9187, L506.0400, L503.6150, L506.1001 #### [facility] [address] [place], [address] Cholesterol in LDL [Mass/Vol] 119 mg/dL Normal [facility] Comment on above: Result Comment: Bord apuyjk=691-062 mg/dL Higher Ltig=878 mg/dL or greater Friedwald Equation for LDL-C Performed By: #### L 400, L501.9985, L509.3001, L500.4100, L501.9520, L503.0106, L500.4050, L100.0100, L501.9310, L506.0200, L501.9187, L506.0400, L503.6150, L506.1001 #### [facility] [address] [place], [address] Cholesterol in VLDL [Mass/Vol] 39 mg/dL Normal 5-40 [facility] Comment on above: Performed By: #### L , L501.9985, L509.3001, L500.4100, L501.9520, L503.0106, L500.4050, L100.0100, L501.9310, L506.0200, L501.9187, L506.0400, L503.6150, L506.1001 #### [facility] [address] [place], [address] Triglyceride [Mass/Vol] 193 mg/dL Normal [facility] Comment on above: Result Comment: The drugs N-Acetylcysteine and Metamizole may falsely depress this assay. Normal range: <150 mg/dL Borderline High: 150-199 mg/dL High: 200-499 mg/dL Very High: >500 mg/dL Performed By: #### L 400.2010, L501.9985, L509.3001, L500.4100, L501.9520, L503.0106, L500.4050, L100.0100, L501.9310, L506.0200, L501.9187, L506.0400, L503.6150, L506.1001 #### [facility] [address] [place], [place], [phone] (759) T4 Free Directon 12-07-2024 T4 FREE DIRECT 1.30 ng/dL Normal 0.76-1.46 [facility] Comment on above: Performed By: #### L 400, L501.9985, L509.3001, L500.4100, L501.9520, L503.0106, L500.4050, L100.0100, L501.9310, L506.0200, L501.9187, L506.0400, L503.6150, L506.1001 #### [facility] [address] [facility] [place], [place], [phone] T4 Total, Thyroxinon 025 T4 [Mass/Vol] 7.3 ug/dL Normal 4.5-12.1 [facility] Comment on above: Performed By: #### L 400, L501.9985, L509.3001, L500.4100, L501.9520, L503.0106, L500.4050, L100.0100, L501.9310, L506.0200, L501.9187, L506.0400, L503.6150, L506.1001 #### [facility] [address] [facility] [place], [place], [phone] (643) Thyroid Stim Hormone (TSH)on 12-07-2024 TSH 3.800 uIU/mL Normal 0.300-4.200 [facility] Comment on above: Performed By: #### L 400.2010, L501.9985, L509.3001, L500.4100, L501.9520, L503.0106, L500.4050, L100.0100, L501.9310, L506.0200, L501.9187, L506.0400, L503.6150, L506.1001 #### [facility] [address] [place], [place], [id number] Urinalysis, Routine (Dipstic k)on 12-07-2024 BILIRUBIN URINE Negative Normal Negative [facility] Comment on above: Order Comment: Urine , Random Performed By: #### L 400, L501.9985, L509.3001, L500.4100, L501.9520, L503.0106, L500.4050, L100.0100, L501.9310, L506.0200, L501.9187, L506.0400, L503.6150, L506.1001 #### [facility] [address] [place], [place], [id number] Clarity (U) Clear Normal Clear [facility] Comment on above: Order Comment: Urine , Random Performed By: #### L , L501.9985, L509.3001, L500.4100, L501.9520, L503.0106, L500.4050, L100.0100, L501.9310, L506.0200, L501.9187, L506.0400, L503.6150, L506.1001 #### [facility] [address] [place], [place], [id number] Color (U) Yellow Normal Yellow [facility] Comment on above: Order Comment: Urine , Random Performed By: #### L 400, L501.9985, L509.3001, L500.4100, L501.9520, L503.0106, L500.4050, L100.0100, L501.9310, L506.0200, L501.9187, L506.0400, L503.6150, L506.1001 #### [facility] [address] [place], [place], [phone] (291) GLUCOSE, UR Normal Normal Normal [facility] Comment on above: Order Comment: Urine , Random Performed By: #### L 400.2010, L501.9985, L509.3001, L500.4100, L501.9520, L503.0106, L500.4050, L100.0100, L501.9310, L506.0200, L501.9187, L506.0400, L503.6150, L506.1001 #### [facility] [address] [place], [place], [id number] (930) KETONE UR Negative Normal Negative [facility] Comment on above: Order Comment: Urine , Random Performed By: #### L 400, L501.9985, L509.3001, L500.4100, L501.9520, L503.0106, L500.4050, L100.0100, L501.9310, L506.0200, L501.9187, L506.0400, L503.6150, L506.1001 #### [facility] [address] [place], [place], [id number] (113) LEUK ESTERASE Negative Normal Negative [facility] Comment on above: Order Comment: Urine , Random Performed By: #### L 400, L501.9985, L509.3001, L500.4100, L501.9520, L503.0106, L500.4050, L100.0100, L501.9310, L506.0200, L501.9187, L506.0400, L503.6150, L506.1001 #### [facility] [address] [place], [place], [id number] (203) Nitrite Ql (U) Negative Normal Negative [facility] Comment on above: Order Comment: Urine , Random Performed By: #### L 400, L501.9985, L509.3001, L500.4100, L501.9520, L503.0106, L500.4050, L100.0100, L501.9310, L506.0200, L501.9187, L506.0400, L503.6150, L506.1001 #### [facility] [address] [place], [place], [id number] OCCULT BLOOD-UR Negative Normal Negative [facility] Comment on above: Order Comment: Urine , Random Performed By: #### L 400, L501.9985, L509.3001, L500.4100, L501.9520, L503.0106, L500.4050, L100.0100, L501.9310, L506.0200, L501.9187, L506.0400, L503.6150, L506.1001 #### [facility] [address] [place], [place], [id number] pH UR 6.0 Normal 5.0 - 8.0 [facility] Comment on above: Order Comment: Urine , Random Performed By: #### L 400, L501.9985, L509.3001, L500.4100, L501.9520, L503.0106, L500.4050, L100.0100, L501.9310, L506.0200, L501.9187, L506.0400, L503.6150, L506.1001 #### [facility] [address] [place], [place], [id number] (590) PROT DIPSTX 15 mg/dl Abnormal Negative [facility] Comment on above: Order Comment: Urine , Random Performed By: #### L 400, L501.9985, L509.3001, L500.4100, L501.9520, L503.0106, L500.4050, L100.0100, L501.9310, L506.0200, L501.9187, L506.0400, L503.6150, L506.1001 #### [facility] [address] [place], [place], [phone] (877) SP.GR. DIPSTX 1.020 Normal 1.002-1.030 [facility] Comment on above: Order Comment: Urine , Random Performed By: #### L 400.2010, L501.9985, L509.3001, L500.4100, L501.9520, L503.0106, L500.4050, L100.0100, L501.9310, L506.0200, L501.9187, L506.0400, L503.6150, L506.1001 #### [facility] [address] [facility] [address] [place], [place], [id number] (021) UROBILI Normal Normal Normal [facility] Comment on above: Order Comment: Urine , Random Performed By: #### L 400, L501.9985, L509.3001, L500.4100, L501.9520, L503.0106, L500.4050, L100.0100, L501.9310, L506.0200, L501.9187, L506.0400, L503.6150, L506.1001 #### [facility] Laboratory [address] [facility] [address] [place], [place], [id number] (274) Vitamin B12on 12-07-2024 Cobalamin (Vitamin B12) [Mass/Vol] 604 pg/mL Normal 180-914 [facility] Comment on above: Performed By: #### L 400, L501.9985, L509.3001, L500.4100, L501.9520, L503.0106, L500.4050, L100.0100, L501.9310, L506.0200, L501.9187, L506.0400, L503.6150, L506.1001 #### [facility] [address] [place], [address] Vitamin D,25 Hydroxyon 12-07 Vitamin D 25-OH 14.0 ng/mL Low 30-100 [facility] Comment on above: Result Comment: Leandra min D Status Deficiency: <20 ng/mL (50nmol/L) Insufficiency: 20-30 ng/mL (50-75 nmol/L) Sufficiency: 30-100 ng/mL (75-250 nmol/L) Toxicity: >100 ng/mL (>250 nmol/L) Performed By: #### L 400.2011, L501.9985, L509.3001, L500.4100, L501.9520, L503.0106, L500.4050, L100.0100, L501.9310, L506.0200, L501.9187, L506.0400, L503.6150, L506.1001 #### [facility] [address] [place], [place], [id number] .GFRon 12-22-2023 GFR 93 ml/min/1.73sqm Normal [facility] ([place]) Comment on above: Result Comment: GFR [...] #### C MP, GFR, LIPID #### [place] [address] [address] GFR Non- 77 ml/min/1.73sqm Normal [facility] ([place]) Comment on above: Result Comment: GFR Population [...] By: #### C MP, GFR, LIPID #### [address] [address] CMPon 12-22-2023 Albumin Level 4.0 G/dL Normal 3.5-5.0 [facility] ([place]) Comment on above: Performed By: #### C MP, GFR, LIPID #### [address] [address] Albumin/Globulin [Mass ratio] 1.3 {ratio} Normal 1.1-2.5 [facility] ([place]) Comment on above: Performed By: #### C MP, GFR, LIPID #### [address] [address] ALP [Catalytic activity/Vol] 88 U/L Normal 40-135 [facility] ([place]) Comment on above: Performed By: #### C MP, GFR, LIPID #### [address] [address] ALT [Catalytic activity/Vol] 72 U/L High 16-63 [facility] ([place]) Comment on above: Performed By: #### C MP, GFR, LIPID #### [address] [address] AST [Catalytic activity/Vol] 23 U/L Normal 10-40 [facility] ([place]) Comment on above: Performed By: #### C MP, GFR, LIPID #### [address] [address] Bili Total 0.4 mg/dL Normal 0.2-1.0 [facility] ([place]) Comment on above: Result Comment: Use of this assay is not recommended for patients undergoing treatment with eltrombopag due to the potential for falsely elevated results. Performed By: #### C MP, GFR, LIPID #### [address] [address] BUN/Creatinine Ratio 10 ratio Normal 7-27 [facility] ([place]) Comment on above: Performed By: #### C MP, GFR, LIPID #### [address] [address] Calcium [Mass/Vol] 9.1 mg/dL Normal 8.4-10.2 [facility] ([place]) Comment on above: Performed By: #### C MP, GFR, LIPID #### [address] [address] Chloride [Moles/Vol] 105 mmol/L Normal 98-107 [facility] ([place]) Comment on above: Performed By: #### C MP, GFR, LIPID #### [address] [address] CO2 [Moles/Vol] 27 mmol/L Normal 22-29 [facility] ([place]) Comment on above: Performed By: #### C MP, GFR, LIPID #### [address] [address] Creatinine [Mass/Vol] 1.15 mg/dL Normal 0.70-1.30 [facility] ([place]) Comment on above: Performed By: #### C MP, GFR, LIPID #### [address] [address] Electrolyte Balance 9.0 mEq/L Normal 4.0-15.0 [facility] ([place]) Comment on above: Performed By: #### C MP, GFR, LIPID #### [address] [address] Globulin 3.1 G/dL Normal [facility] ([place]) Comment on above: Performed By: #### C MP, GFR, LIPID #### [address] [address] Glucose [Mass/Vol] 92 mg/dL Normal 70-105 [facility] ([place]) Comment on above: Performed By: #### C MP, GFR, LIPID #### [address] [place], [place] [address] Potassium [Moles/Vol] 4.5 mmol/L Normal 3.5-5.1 [facility] ([place]) Comment on above: Performed By: #### C MP, GFR, LIPID #### [address] [place], [place] [address] Sodium [Moles/Vol] 141 mmol/L Normal 136-145 [facility] ([place]) Comment on above: Performed By: #### C MP, GFR, LIPID #### [address] [address] Total Protein 7.1 G/dL Normal 6.4-8.2 [facility] ([place]) Comment on above: Performed By: #### C MP, GFR, LIPID #### [address] [address] Urea nitrogen [Mass/Vol] 11 mg/dL Normal 7-18 [facility] ([place]) Comment on above: Performed By: #### C MP, GFR, LIPID #### [address] [address] LABORATORYOrdered By: SYSTEM SYSTEM on 12-22-2023 Albumin [...] 12-22-2023 Cholesterol [Mass/Vol] 162 mg/dL Normal 0-200 [facility] ([place]) Comment on above: Result Comment: Chol esterol Reference Interval: Less than 200 Desirable 200-239 Borderline high risk 240 and above High risk Performed By: #### C MP, GFR, LIPID #### [address] [address] Cholesterol in HDL [Mass/Vol] 36 mg/dL Low 40-60 [facility] ([place]) Comment on above: Performed By: #### C MP, GFR, LIPID #### [place] [address] [address] Cholesterol in LDL [Mass/Vol] 99 mg/dL Normal 0-130 [facility] ([place]) Comment on above: Performed By: #### C MP, GFR, LIPID #### [place] [address] [place], [place] [address] Triglyceride [Mass/Vol] 137 mg/dL Normal 0-150 [facility] ([place]) Comment on above: Result Comment: Trig lyceride Reference Interval: Less than 150 Normal 150-199 Borderline high risk 200-499 High risk 500 or higher Very high risk Performed By: #### C MP, GFR, LIPID #### [place] [address] [place], [place] [address] CNOVon 05-29-2023 CNOV Office Visit ([facility]) -------- BAKARINOAH CORDOBA ([id number]) 1995 M Date Time Provider Department 05/29/23 9:00 AM RENETTA LEGGETT [facility] During your visit today, we recorded the following information about you: Temperature Pulse Respiration Blood pressure 97.5 degrees 91/minute 18/minute 151/90 Weight 127 kg Reentta Leggett APRN.[facility] 05/29/2023 9:20 AM Signed CC: Patient presents [...] Patient agreeable to treatment plan. Renetta Leggett APRN.RN LABOR AND DELIVERY Allergies As of Date: 05/29/2023 (No Known [...] by mouth (more content not included)... Normal [facility] CNOVon 05-16-2023 CNOV Office Visit ([facility]) -------- NOAH VILLEGAS ([id number]) 1995 M Date Time Provider Department 05/16/23 2:15 PM CATNIA WAHL [facility] During your visit today, we [...] - AM (more content not included)... Normal [facility] Vital Signs Date Time Vital Sign Value Performing Clinician Arian nagel 05-29-2023 09:06-0500 Body temperature 97.5 [degF] Renetta Leggett APRN.RN LABOR AND DELIVERY Work Phone: [facility] 05-29-2023 09:06-0500 Body weight 127.01 kg Renetta Leggett APRN.RN LABOR AND DELIVERY Work Phone: [facility] 05-29-2023 09:06-0500 Diastolic blood pressure 90 mm[Hg] Renetta Leggett APRN.RN LABOR AND DELIVERY Work Phone: [facility] 05-29-2023 09:06-0500 Heart rate 91 /min Renetta Leggett APRN.RN LABOR AND DELIVERY Work Phone: [facility] 05-29-2023 09:06-0500 Respiratory rate 18 /min Renetta Leggett APRN.RN LABOR AND DELIVERY Work Phone: [facility] 05-29-2023 09:06-0500 SaO2% (BldA) [Mass fraction] 99 % Renetta Leggett APRN.RN LABOR AND DELIVERY Work Phone: [facility] 05-29-2023 09:06-0500 Systolic blood pressure 151 mm[Hg] Renetta Leggett APRN.RN LABOR AND DELIVERY Work Phone: [facility] 04-11-2022 13:16-0500 Body temperature 97.5 [degF] Marleny Monge APRN.RN LABOR AND DELIVERY Work Phone: [facility] 04-11-2022 13:16-0500 Body weight 120.66 kg Marleny Older [employer] EXAMINER.RN LABOR AND DELIVERY Work Phone: [facility] 04-11-2022 13:16-0500 Diastolic blood pressure 88 mm[Hg] Marleny Older [employer] FI[employer] EXAMINER.RN LABOR AND DELIVERY Work Phone: [facility] 04-11-2022 13:16-0500 Heart rate 95 /min Marleny Older [employer] FIELD EXAMINER.RN LABOR AND DELIVERY Work Phone: [facility] 04-11-2022 13:16-0500 Respiratory rate 16 /min Marleny Older [employer] FI[employer] EXAMINER.RN LABOR AND DELIVERY Work Phone: [facility] 04-11-2022 13:16-0500 SaO2% (BldA) [Mass fraction] 99 % Marleny Older [employer] FI[employer] EXAMINER.RN LABOR AND DELIVERY Work Phone: [facility] 04-11-2022 13:16-0500 Systolic blood pressure 132 mm[Hg] Marleny Older [employer] FIELD EXAMINER.RN LABOR AND DELIVERY Work Phone: [facility] Encounters Encounter Date Encounter Type Care Provider Facility Start: 12-10-2024 ambulatory Noel Payne NP Facility:[facility] Start: 12-07-2024 [facility] Start: 12-22-2023 End: 12-22-2023 ambulatory NOEL PAYNE [employer] - RN LABOR AND DELIVERY Facility:[facility] Start: 12-22-2023 End: 12-22-2023 Patient encounter procedure NOEL PAYNE [employer]AMINER - RN LABOR AND DELIVERY [facility] Start: 05-29-2023 End: 05-29-2023 ambulatory Facility:[facility] Start: 05-29-2023 End: 05-29-2023 Patient encounter procedure Renetta Leggett [employer] EXAMINER.RN LABOR AND DELIVERY Work Phone: [facility] Comment on above: Acute otitis media, left (Primary Dx) Start: 05-16-2023 End: 05-16-2023 ambulatory Facility:[facility] Start: 04-11-2022 End: 04-11-2022 Patient encounter procedure Marleny Older [employer] EXAMINER.RN LABOR AND DELIVERY Work Phone: [facility] Comment on above: Eustachian tube dysf unction, bilateral (Primary Dx); Vertigo Plan of Treatment Date Care Activity Detail Author Start: 02-26-2031 Urine microalbumin profile DTa P,Tdap,Td Vaccine (8 - Td or Tdap) [facility] Start: 05-02-2023 Depression Assessment Depression [facility] Start: 12-31-2022 Influenza vaccination Influenza Vacc ine (#1) [facility] Start: 12-31-2021 Influenza vaccination INFLUENZA (#1) [facility] Start: 05-02-2021 [facility]PRESSION [facility] Start: 03-26-2021 HPV Vaccine (2 - Mal e 3-dose series) HPV Vaccine (2 - Male 3-dose series) [facility] Start: 12-27-2019 Urine microalbumin profile DTA P,TDAP,TD (7 - Td or Tdap) [facility] Start: 2014 HEPATITIS C SCREENING HEPATITIS C [facility] Start: 2014 Hepatitis C screening Hepatitis C [facility] Start: 2014 HIV SCREENING HIV SCREENING [facility] Start: 2014 HIV screening HIV Screening [facility] Start: 2010 PEDS TO ADULT TRANSI TION ANNUAL ASSESSMENT PEDS TO ADULT TRANSITION ANNUAL ASSESSMENT [facility] Start: 2008 PEDS TO ADULT TRANSI TION INITIAL DISCUSSION PEDS TO ADULT TRANSITION INITIAL DISCUSSION [facility] Start: 12-30-2007 HPV VACCINE (1 - Mal e 2-dose series) HPV VACCINE (1 - Male 2-dose series) [facility] Start: 06-29-1997 COVID-19 VACCINE (#1) COVID-19 VACCI NE (#1) [facility] Immunizations Immunization Date Immunization Notes Care Provider Fa cili 02-26-2021 influenza virus vacc ine, unspecified formulation Renetta Leggett [employer] EXAMINER.RN LABOR AND DELIVERY Work Phone: [facility] 09-15-2020 SARS-CoV-2 (COVID-19 ) mRNA-1273 vaccine NOEL PAYNE [employer] EXAMINER - RN LABOR AND DELIVERY [facility] Comment on above: Result Comment: 2023: T[facility]ALL 08-18-2020 SARS-CoV-2 (COVID-19 ) mRNA-1243 vaccine NOEL PAYNE [employer] EXAMINER - RN LABOR AND DELIVERY [facility] Comment on above: Result Comment: 2023: T[facility] 09-09-2014 meningococcal polysaccharide (groups A, C, Y and W-135) diphtheria toxoid conjugate vaccine (MCV4P) NOEL PAYNE [employer] EXAMINER - RN LABOR AND DELIVERY [facility] 09-09-2014 varicella virus vaccine KRISTINE PAYNE [employer] EXAMINER - RN LABOR AND DELIVERY [facility] 12-26-2009 meningococcal polysaccharide (groups A, C, Y and W-135) diphtheria toxoid conjugate vaccine (MCV4P) NOEL PAYEN [employer] EXAMINER - RN LABOR AND DELIVERY [facility] 12-26-2009 Meningococcal, MCV4, unspecified conjugate formulation(groups A, C, Y and W-135) Marleny Older [employer] FIELD EXAMINER.RN LABOR AND DELIVERY Work Phone: [facility] Work Phone: 12-26-2009 tetanus toxoid, redu anselmo diphtheria toxoid, and acellular pertussis vaccine, adsorbed Marleny Older [employer] FIELD EXAMINER.RN LABOR AND DELIVERY Work Phone: [facility] Work Phone: 01-12-2002 diphtheria, tetanus toxoids and acellular pertussis vaccine Marleny Older [employer] FIELD EXAMINER.RN LABOR AND DELIVERY Work Phone: [facility] Work Phone: 01-12-2002 measles, mumps and rubella virus vaccine Marleny Older [employer] FIELD EXAMINER.RN LABOR AND DELIVERY Work Phone: [facility] Work Phone: 01-12-2002 measles/mumps/rubell a virus vaccine NOEL PAYNE [employer] EXAMINER - RN LABOR AND DELIVERY [facility] 01-12-2002 poliovirus vaccine, inactivated Marleny Older [employer] FIELD EXAMINER.RN LABOR AND DELIVERY Work Phone: [facility] Work Phone: 02-13-1999 varicella virus vaccine Marleny Older [employer] FIELD EXAMINER.RN LABOR AND DELIVERY Work Phone: [facility] Work Phone: 03-26-1998 diphtheria, tetanus toxoids and acellular pertussis vaccine Marleny Older [employer] FIELD EXAMINER.RN LABOR AND DELIVERY Work Phone: [facility] Work Phone: 03-26-1998 haemophilus influenz ae type b vaccine, HbOC conjugate Marleny Older [employer] FIELD EXAMINER.RN LABOR AND DELIVERY Work Phone: [facility] Work Phone: 03-26-1998 measles, mumps and rubella virus vaccine Marleny Older [employer] FIELD EXAMINER.RN LABOR AND DELIVERY Work Phone: [facility] Work Phone: 03-26-1998 measles/mumps/rubell a virus vaccine NOEL PAYNE [employer] EXAMINER - RN LABOR AND DELIVERY [facility] 03-26-1998 poliovirus vaccine, inactivated Marleny Older [employer] FIELD EXAMINER.RN LABOR AND DELIVERY Work Phone: [facility] Work Phone: 10-11-1997 hepatitis B pediatri c vaccine NOEL PAYNE [employer] EXAMINER - RN LABOR AND DELIVERY [facility] 10-11-1997 hepatitis B vaccine, pediatric or pediatric/adolescent dosage Marleny Older [employer] FIELD EXAMINER.RN LABOR AND DELIVERY Work Phone: [facility] Work Phone: 07-03-1997 diphtheria, tetanus toxoids and acellular pertussis vaccine Marleny Older [employer] FIELD EXAMINER.RN LABOR AND DELIVERY Work Phone: [facility] Work Phone: 07-03-1997 haemophilus influenz ae type b vaccine, HbOC conjugate Marleny Older [employer] FIELD EXAMINER.RN LABOR AND DELIVERY Work Phone: [facility] Work Phone: 05-06-1997 diphtheria, tetanus toxoids and acellular pertussis vaccine Marleny Older [employer] FIELD EXAMINER.RN LABOR AND DELIVERY Work Phone: [facility] Work Phone: 05-06-1997 haemophilus influenz ae type b vaccine, HbOC conjugate Marleny Older [employer] FIELD EXAMINER.RN LABOR AND DELIVERY Work Phone: [facility] Work Phone: 05-06-1997 poliovirus vaccine, inactivated Marleny Older [employer] FIELD EXAMINER.RN LABOR AND DELIVERY Work Phone: [facility] Work Phone: 03-07-1997 diphtheria, tetanus toxoids and acellular pertussis vaccine Marleny Older [employer] FIELD EXAMINER.RN LABOR AND DELIVERY Work Phone: [facility] Work Phone: 03-07-1997 haemophilus influenz ae type b vaccine, HbOC conjugate Marleny Older [employer] FIELD EXAMINER.RN LABOR AND DELIVERY Work Phone: [facility] Work Phone: 03-07-1997 poliovirus vaccine, inactivated Marleny Older [employer]EDIT [employer] FIELD EXAMINER.[facility] Work Phone: [facility] Work Phone: 01-31-1997 hepatitis B pediatri c vaccine NOEL PAYNE [employer] FIELD EXAMINER - [facility] 01-31-1997 hepatitis B vaccine, pediatric or pediatric/adolescent dosage Marleny Older [employer] FIELD EXAMINER.RN LABOR AND DELIVERY Work Phone: [facility] Work Phone: 1995 hepatitis B pediatri c vaccine NOEL PAYNE [employer] FIELD EXAMINER - [facility] 1995 hepatitis B vaccine, pediatric or pediatric/adolescent dosage Marleny Older [employer] FIELD EXAMINER.RN LABOR AND DELIVERY Work Phone: [facility] Work Phone: Payers Date Payer Category Payer Self-pay 2021 Private Health Insurance LAURENT LAWLER OAP [id number] 2021-Present [phone] [facility] [id number] [place] PICHARDO [id number] Open Access [id number] 2021 Private Health Insurance [id number] 1995 Unknown [id number] Unknown [id number] Unknown [id number] Social History Date Type Detail Facility Start: 12-19-2023 Tobacco smoking stat [facility] Never smoked tobacco [facility] Work Phone: Start: 04-11-2022 End: 05-29-2023 Alcohol intake Current non-drinker of alcohol (finding) [facility] Start: 1995 Sex Assigned At Not on file [facility] Start: 05-29-2023 History of Social function [facility] Start: 05-29-2023 Tobacco use panel [facility] Sex Assigned At Male [facility] Clinical Notes 04-11-2022 to 12-22-2023 Renetta Mcqueen APRN.CNP - 05/29/2023 9:18 AM ESTPatient Eladio Monge APRN.CNP - 04/11/2022 1:41 PM EST Note Date & Type Note Facility 12-22-2023 Evaluation + Plan note Future Scheduled [id number] Hemoglobin 12/22/23Lipid Profile 12/22/23Complete Metabolic Panel 12/22/23 [facility] 05-29-2023 Note HNO ID: [id number] Author: RENETTA LEGGETT APRN.CNP Service: ? Author [...] Patient agreeable to treatment plan. Renetta Leggett APRN.[facility] 05-29-2023 History of Presen t [...] Patient agreeable to treatment plan. Renetta Leggett APRN.RN LABOR AND DELIVERY documented in this encounter [facility] 05-16-2023 Note HNO ID: [id number] Author: CATINA WAHL APRN.JAQUELIN Service: ? Author [...] Discussed expected course of illness Catina Wahl APRN.[facility] 04-11-2022 Instructions Marleny Monge APRN.CNP - 04/11/2022 1:46 PM EST Start Flonase, use daily. Follow-up in 7 days if symptoms don't improve or sooner if worsening Take meclizine as needed for dizziness documented in this encounter [facility] 04-11-2022 History of Presen t illness Narrative [...] Marleny Monge APRN.CNP documented in this encounter [facility] Evaluation note Diagnosis Eustachian tube dysfunction, bilateral- Primary Vertigo Dizziness and giddiness documented [facility] this encounter [facility] Diagnosis Acute otitis media, left- Primary Unspecified otitis media documented in this encounter [facility] course Narrative No data available for this section [facility] Hospital Discharge instructions No data available for this section [facility] Progress note No data available for this section [facility] Summary Purpose Family History No Family History [...] or prosecute any alcohol or drug abuse patient.[facility] the event this information is protected by the Federal Confidentiality of Alcohol and Drug Abuse Patient Records regulations: The Federal rules restrict any use of the information to criminally investigate or prosecute any alcohol or drug abuse patient.[facility] Reason for Visit (unrecogniz ed section and content) Reason Comments Dizziness With head pressure x 4 days off and on, wosrsening Reason Comments Ear Problem L ear pressure, no c onstant pain x1 day, pain with chewing (unrecognized sect ion and content) No Status Records FoundNo Status Records FoundNo Status Records Found INFORMATION SOURCE (unrecogn ized section and content) DATE CREATED AUTHOR 05/29/2023 [facility] DATE CREATED AUTHOR AUTHOR'S ORGANIZ ATION 12/24/2023 [facility] ([place]) DATE CREATED AUTHOR AUTHOR'S ORGANIZ ATION 12/09/2024 [facility] Patient Care team informatio n (unrecognized section and content) Care Team Personnel Name: NOEL PAYNE APRN - RN LABOR AND DELIVERY Position: P4 Advanced Mold Stripper Member Role: Primary Care Physician Address: Address: [address] [place] [address]- Care Team Related Persons Name: LEONEL VILLEGAS [...] BE BASED ON THE PRIMARY CLINICAL RECORDS. [facility] [employer] [facility]. provides no warranty or guarantee of the accuracy or completeness of information in this document.
== END | disposition home or self-care (01) ==
PROVIDERS: PCP Nurse Practitioner Family
DX: F32.1 Major depressive disorder, single episode, moderate (principal)
CPT/HCPCS: 93005